=== PATIENT | male | born 1955 | race Caucasian/White ===

== ENCOUNTER 2022-06-10 15:21 | Inpatient (IN) | payer MEDICARE, BC, SELFPAY ==
[2022-06-10] VITALS (11 sets, daily range): BP systolic 113–150; BP diastolic 59–77; PULSE 77–115; RESP 20–28; TEMP 36.2–38.2; O2SAT 88–97; BMI 40.8; BMI 41.3
--- NOTE | 2022-06-10 17:07 | CRLHL7_ITS ---
For Patients: As a result of the Cures Act, medical imaging exams and procedure reports are released immediately into your electronic medical record. You may view this report before your referring provider. If you have questions, please contact your health care provider. INDICATION: Shortness of breath. TECHNIQUE: Chest 1 view. COMPARISON: None. FINDINGS: There are diffusely increased interstitial opacities bilaterally which may be infectious/inflammatory due to edema. Mild bibasilar atelectasis. No pleural effusion or pneumothorax. Calcified granulomas right upper lung and left mid lung. The cardiac silhouette appears mildly enlarged but may be exaggerated by portable technique. Old left clavicle fracture. IMPRESSION: Diffusely increased interstitial opacities may be infectious/inflammatory or due to edema. Dictated by Minerva Morris MD @ 06/10/2022 5:46:22 PM (Electronically Signed)
[2022-06-10 17:35] LABS: HCO3 VBG 23 mmol/L (21-28); PCO2 VBG 47 mmHG (40-50); PO2 VBG 35.4 mmHG (25-47); pH VBG 7.293 (7.32-7.43)
[2022-06-10 17:36] LABS: Basophils Absolute Auto 0.02 K/uL (0.00-0.30); Basophils Percent Auto 0.3 % (0.0-3.0); Eosinophils Absolute Auto 0.29 K/uL (0.00-0.50); Eosinophils Percent Auto 4.2 % (0.0-7.0); Hematocrit 28.9 % (37.0-53.0); Hemoglobin* 9.1 gm/dL (13.5-17.5); Immature Granulocytes Abs Auto 0.01 K/uL (0.00-0.30); Immature Granulocytes Pct Auto 0.1 %; Lymphocytes Percent Auto 10.2 % (20-44); Mean Corpuscular HGB Conc 32 gm/dL (32-36); Mean Corpuscular Hemoglobin 29 pg (26-34); Mean Corpuscular Volume 94 fL (80-100); Monocytes Percent Auto 8.6 % (0.0-11.0); Neutrophils Percent Auto 76.6 % (42.0-72.0); Platelet Count* 212 K/uL (140-440); RDW Coefficient of Variation % 14.2 % (11.5-15.5); Red Blood Count 3.09 m/uL (4.30-5.90); White Blood Count* 6.87 K/uL (4.50-11.00)
[2022-06-10 17:39] LABS: Slide Review Reflex No
[2022-06-10] MEDS: FUROSEMIDE 10 MG/ML inj 40 MG IVP (17:56)
[2022-06-10 17:57] LABS: Chloride* 114 mmol/L (96-114); Potassium* 5.8 mmol/L (3.6-5.1); Sodium* 139 mmol/L (135-149)
[2022-06-10 17:58] LABS: Albumin* 3.9 g/dL (3.3-5.0); INR 1.12 (0.91-1.10)
[2022-06-10 18:00] LABS: Creatinine* 1.7 mg/dL (0.5-1.5); Est. Creatinine Clearance* 37.53; Estimated Glomerular Filt Rate 43 ml/min
[2022-06-10 18:01] LABS: Alkaline Phosphatase* 63 U/L (40-150); Aspartate Amino Transferase* 31 U/L (12-35); Bilirubin Direct* 0.2 mg/dL (0.0-0.5); Bilirubin Total* 0.4 mg/dL (0.1-1.5); Blood Urea Nitrogen* 31 mg/dL (7-30); Calcium* 8.9 mg/dL (8.4-10.6); Carbon Dioxide* 21 mmol/L (20-32); Glucose* 78 mg/dL (60-115); Total Protein* 6.7 g/dL (6.0-8.3)
[2022-06-10 18:02] LABS: Alanine Aminotransferase* 60 U/L (4-50)
[2022-06-10 18:04] LABS: C Reactive Protein* < 0.5 mg/dL (0.5-1.0)
[2022-06-10 18:13] LABS: Troponin I* < 0.01 ng/mL (0.01-0.04)
[2022-06-10 18:14] LABS: NT Pro B Type NatriureticPept* 3020 pg/mL
--- NOTE | 2022-06-10 19:48 | ED.NURSE ---
blood sugar 68. informed. pt given applesauce to eat.
--- NOTE | 2022-06-10 20:34 | ED.NURSE ---
pt offered more food, pt did not want more food.
[2022-06-10 20:50] LABS: SARS PCR* POSITIVE SARS-CoV-2 (Negative)
--- NOTE | 2022-06-10 20:51 | ED_ITS ---
HPI - General Adult General Date Seen: 06/10/22 Chief complaint: Shortness of Breath/Dyspnea Stated complaint: Cardiac Arrest concern,Diabetic Health Issues Time Seen by Provider: 06/10/22 16:36 Source: patient and family History of Present Illness HPI narrative: Patient is a 66-year-old male, with really no previous records here, presents with his son, at the recommendation of his home health nurse. He is a poor historian. He was admitted to [place] several weeks ago with it sounds like congestive heart failure needing diuresis. He says they ?did not do anything for him. Since leaving the hospital, he says he has been ?the same, but does note that his weight is up from a baseline of 225 to 255. He is under the impression this can be fixed by putting in a catheter appear he says his abdomen is distended, he seems to feel that this is related to his bladder. His legs are very swollen, he does acknowledge that. He says his breathing is terrible, he can barely put on his socks because he is so short of breath. He does deny chest pain. He says he always has a cough but that is unchanged. He is not having any trouble with fevers. He does not have any new pain in his legs. He has had diarrhea for a while now, he tells me that he was treated for an infection that they told him he got from chickens, 4 years ago. He said he took some red pill to treat that, but it seems to have come back so they gave him a d ifferent medicine. He can not remember what the name of either the infection or the medications were, but C diff and salmonella did not sound familiar to him. He denies bloody or black stools. Related Data Home Medications Medication Instructions Recorded Confirmed aspirin 81 mg chewable tablet 81 mg PO DAILY 06/10/22 06/10/22 (Aspirin Childrens) atorvastatin 80 mg tablet 80 mg PO HS 06/10/22 06/10/22 carvedilol 3.125 mg tablet 3.125 mg PO Q12H 06/10/22 06/10/22 cholecalciferol (vitamin D3) 125 5,000 unit PO DAILY 06/10/22 06/10/22 mcg (5,000 unit) capsule gabapentin 300 mg capsule 300 mg PO HS 06/10/22 06/10/22 glipizide 5 mg-metformin 500 mg 1 tab PO BID 06/10/22 06/10/22 tablet lisinopril 5 mg tablet 5 mg PO DAILY 06/10/22 06/10/22 tamsulosin 0.4 mg capsule 0.4 mg PO Q24H 06/10/22 06/10/22 torsemide 100 mg tablet mg 06/10/22 Allergies Allergy/AdvReac Type Severity Reaction Status Date / Time No Known Drug Allergies Allergy Verified 06/10/22 15:58 Review of Systems Status of ROS: Reports: 10 or more systems reviewed and unremarkable except as noted in History and below [facility] Social History Smoking Status: Unknown if ever smoked Non-prescribed substance use: denies use Exam Narrative: Exam Narrative: Vital signs as noted above. In general, an alert, nontoxic male. Speaks in full sentences. Head: Normocephalic, atraumatic. Eyes: Pupils are equal reactive. Extraocular movements are full. Conjunctivae are normal. ENT: Mucous membranes are moist. Throat is normal. Neck: Supple without lymphadenopathy. Heart: Regular rate and rhythm. No murmur or rub. Lungs: Bibasilar crackles. Tachypneic, no increased work of breathing. Abdomen: Protuberant, distended, abdominal wall somewhat tense but he is nontender to palpation. Extremities: Pitting edema to the knees bilaterally. No erythema, no calf tenderness. Pulses not assessed in the feet. Neurologic: Patient is alert and oriented to person and place. Speech is fluent. Face is symmetric. Moves all extremities equally. Affect: Normal. Skin: Warm and dry. Well perfused. Const: Vital Signs, click to edit/add: Vital Signs - 24 hr 06/10/22 15:41 06/10/22 21:00 06/10/22 21:22 Temperature 97.1 F L Pulse Rate [Right Pulse Oximeter] 77 83 Respiratory Rate 28 H 20 Blood Pressure [Ri ght Upper Arm] 113/66 121/59 L Pulse Oximetry 93 88 97 Oxygen Delivery Me thod Room Air Room Air Nasal Cannula Oxygen Flow Rate 2 Documenting provider has reviewed patient's vital signs: yes Course Course Hospital Course: Following initial evaluation an IV was placed, he was given 40 mg of IV Lasix pending labs. An x-ray of the chest by my review showed findings consistent with pulmonary edema. The final radiology report was read as diffusely increased interstitial opacities which may be inflammatory, infectious or due to edema. I think given the clinical picture edema is most likely. We did do a bladder scan, he had 250 mL of urine in his bladder, but he also is able to urinate without any difficulty seemingly, so I do not think he has urinary retention as a problem. I think he seems to associates getting a catheter with his hospitalizations for diuresis. I have tried to explain to him that placing a catheter will not fix his underlying fluid overload. His labs otherwise show white count of 6.8 and normal platelets. His hemoglobin is 9.1, baseline unknown. His INR is a tiny bit elevated at 1.1 to, venous gas shows minimal acidosis at 7.29, but pCO2 is normal and bicarb is likewise normal at 23. Sodium is 139 potassium is elevated at 5.8. Lisinopril may need to be held given his renal insufficiency and hyperkalemia. He did have an EKG which by my review shows a normal sinus rhythm, ventricular rate of 70, nonspecific ST changes but I do not see anything suggestive of hyperkalemia. I do not think that needs specific treatment right now, should be rechecked. His BUN and creatinine are elevated at 31 and 1.7, again baseline unknown. Blood sugar on his metabolic panel was normal at 78, albeit slightly low, he did drop a little further into the 60s and was given something to eat. He does have a history of diabetes. For now, I have recommended that he stay in the hospital for diuresis and management of his fluid and electrolyte status. He is amenable to that. Troponin was negative. COVID however was positive. Vital Signs Vital signs: Initial Vital Signs Temperature 97.1 F L 06/10/22 15:41 Temperature Source Temporal Artery Scan 06/10/22 15:41 Pulse Rate 77 06/10/22 15:41 Respiratory Rate 28 H 06/10/22 15:41 Blood Pressure 113/66 06/10/22 15:41 Blood Pressure Mean 81 06/10/22 15:41 Blood Pressure Position Sitting 06/10/22 15:41 Pulse Oximetry 93 06/10/22 15:41 Oxygen Delivery Method 06/10/22 15:41 Vital Signs Temperature 97.1 F L 06/10/22 15:41 Pulse Rate 77 06/10/22 15:41 Respiratory Rate 28 H 06/10/22 15:41 Blood Pressure 113/66 06/10/22 15:41 Pulse Oximetry 93 06/10/22 15:41 Oxygen Delivery Method 06/10/22 15:41 Temperature 97.1 F L 06/10/22 15:41 Pulse Rate 83 06/10/22 21:00 Respiratory Rate 20 06/10/22 21:00 Blood Pressure 121/59 L 06/10/22 21:00 Pulse Oximetry 97 06/10/22 21:22 Oxygen Delivery Method 06/10/22 21:22 Oxygen Flow Rate 2 06/10/22 21:22 Medical Decision Making Lab Data Labs: Lab Results 06/10/22 06/10/22 06/10/22 Range/Units 17:30 17:30 17:30 WBC 6.87 (4.50-11.00) K/uL RBC 3.09 L (4.30-5.90) m/uL Hgb 9.1 L (13.5-17.5) gm/dL Hct 28.9 L (37.0-53.0) % MCV 94 (80-100) fL MCH 29 (26-34) pg MCHC 32 (32-36) gm/dL RDW Coeff of Won 14.2 (11.5-15.5) % Plt Count 212 (140-440) K/uL Neut % (Auto) 76.6 H (42.0-72.0) % Lymph % (Auto) 10.2 L (20-44) % Carver % (Auto) 8.6 (0.0-11.0) % Eos % (Auto) 4.2 (0.0-7.0) % Baso % (Auto) 0.3 (0.0-3.0) % Neut # (Auto) 5.30 (1.7-7.0) K/uL Lymph # (Auto) 0.70 L (0.90-2.90) K/uL Carver # (Auto) 0.60 (0.00-0.90) K/UL Eos # (Auto) 0.29 (0.00-0.50) K/uL Baso # (Auto) 0.02 (0.00-0.30) K/uL INR 1.12 H (0.91-1.10) VBG pH (7.32-7.43) VBG pCO2 (40-50) mmHG VBG pO2 (25-47) mmHG VBG HCO3 (21-28) mmol/L Sodium 139 (135-149) mmol/L Potassium 5.8 H (3.6-5.1) mmol/L Chloride 114 (96-114) mmol/L Carbon Dioxide 21 (20-32) mmol/L BUN 31 H (7-30) mg/dL Creatinine 1.7 H (0.5-1.5) mg/dL Estimated Creat Clear 37.53 Estimated GFR 43 ml/min Glucose 78 (60-115) mg/dL Calcium 8.9 (8.4-10.6) mg/dL Total Bilirubin (0.1-1.5) mg/dL Direct Bilirubin (0.0-0.5) mg/dL AST (12-35) U/L ALT (4-50) U/L Alkaline Phosphatase (40-150) U/L Troponin I (0.01-0.04) ng/mL C-Reactive Protein < 0.5 L (0.5-1.0) mg/dL NT-Pro-B Natriuret Pep pg/mL Total Protein (6.0-8.3) g/dL Albumin (3.3-5.0) g/dL TSH (0.270-4.200) uIU/mL SARS-CoV-2 (PCR) (Negative) 06/10/22 06/10/22 06/10/22 Range/Units 17:30 17:30 17:30 WBC (4.50-11.00) K/uL RBC (4.30-5.90) m/uL Hgb (13.5-17.5) gm/dL Hct (37.0-53.0) % MCV (80-100) fL MCH (26-34) pg MCHC (32-36) gm/dL RDW Coeff of Won (11.5-15.5) % Plt Count (140-440) K/uL Neut % (Auto) (42.0-72.0) % Lymph % (Auto) (20-44) % Carver % (Auto) (0.0-11.0) % Eos % (Auto) (0.0-7.0) % Baso % (Auto) (0.0-3.0) % Neut # (Auto) (1.7-7.0) K/uL Lymph # (Auto) (0.90-2.90) K/uL Carver # (Auto) (0.00-0.90) K/UL Eos # (Auto) (0.00-0.50) K/uL Baso # (Auto) (0.00-0.30) K/uL INR (0.91-1.10) VBG pH 7.293 L (7.32-7.43) VBG pCO2 47 (40-50) mmHG VBG pO2 35.4 (25-47) mmHG VBG HCO3 23 (21-28) mmol/L Sodium (135-149) mmol/L Potassium (3.6-5.1) mmol/L Chloride (96-114) mmol/L Carbon Dioxide (20-32) mmol/L BUN (7-30) mg/dL Creatinine (0.5-1.5) mg/dL Estimated Creat Clear Estimated GFR ml/min Glucose (60-115) mg/dL Calcium (8.4-10.6) mg/dL Total Bilirubin 0.4 (0.1-1.5) mg/dL Direct Bilirubin 0.2 (0.0-0.5) mg/dL AST 31 (12-35) U/L ALT 60 H (4-50) U/L Alkaline Phosphatase 63 (40-150) U/L Troponin I < 0.01 L (0.01-0.04) ng/mL C-Reactive Protein (0.5-1.0) mg/dL NT-Pro-B Natriuret Pep 3020 pg/mL Total Protein 6.7 (6.0-8.3) g/dL Albumin 3.9 (3.3-5.0) g/dL TSH 1.060 (0.270-4.200) uIU/mL SARS-CoV-2 (PCR) (Negative) 06/10/22 Range/Units 20:05 WBC (4.50-11.00) K/uL RBC (4.30-5.90) m/uL Hgb (13.5-17.5) gm/dL Hct (37.0-53.0) % MCV (80-100) fL MCH (26-34) pg MCHC (32-36) gm/dL RDW Coeff of Won (11.5-15.5) % Plt Count (140-440) K/uL Neut % (Auto) (42.0-72.0) % Lymph % (Auto) (20-44) % Carver % (Auto) (0.0-11.0) % Eos % (Auto) (0.0-7.0) % Baso % (Auto) (0.0-3.0) % Neut # (Auto) (1.7-7.0) K/uL Lymph # (Auto) (0.90-2.90) K/uL Carver # (Auto) (0.00-0.90) K/UL Eos # (Auto) (0.00-0.50) K/uL Baso # (Auto) (0.00-0.30) K/uL INR (0.91-1.10) VBG pH (7.32-7.43) VBG pCO2 (40-50) mmHG VBG pO2 (25-47) mmHG VBG HCO3 (21-28) mmol/L Sodium (135-149) mmol/L Potassium (3.6-5.1) mmol/L Chloride (96-114) mmol/L Carbon Dioxide (20-32) mmol/L BUN (7-30) mg/dL Creatinine (0.5-1.5) mg/dL Estimated Creat Clear Estimated GFR ml/min Glucose (60-115) mg/dL Calcium (8.4-10.6) mg/dL Total Bilirubin (0.1-1.5) mg/dL Direct Bilirubin (0.0-0.5) mg/dL AST (12-35) U/L ALT (4-50) U/L Alkaline Phosphatase (40-150) U/L Troponin I (0.01-0.04) ng/mL C-Reactive Protein (0.5-1.0) mg/dL NT-Pro-B Natriuret Pep pg/mL Total Protein (6.0-8.3) g/dL Albumin (3.3-5.0) g/dL TSH (0.270-4.200) uIU/mL SARS-CoV-2 (PCR) POSITIVE SARS-CoV-2 A (Negative) Discharge Plan Discharge Clinical Impression: COVID-19, Congestive heart failure Patient Disposition: Admitted As Inpatient Condition: Improved
--- NOTE | 2022-06-10 21:23 | ED.NURSE ---
pt with low O2 sats while sleeping. Pt reports using O2 at home. Pt placed on O2 via NC, sats increased from 80's to 90's after O2 applied.
--- NOTE | 2022-06-10 22:23 | PM.IMHP1 ---
Hospitalist- H&P: HPI History of Present Illness Date Seen: 06/10/22 Chief complaint: Possible Cardiac Arrest,Diabetic Health Issues Narrative: Gasper Cheng is a 66 year old male who presented to the hospital at the behest of his home health nurse for dyspnea and acute on chronic lower extremity edema. Patient notes that he has had shortness of breath for at least a week, possibly longer, accompanied by intermittent coughing. Cough has not been productive. He has had difficulty performing ADLs secondary to dyspnea. He has also noted orthopnea and is not sleeping well. He has not had any fevers or chest pain. ER course and findings: - BNP 1999 - negative troponin - positive COVID Patient was hospitalized for COVID in April of 2021 [place]. He tolerated Remdesivir well at that time, is amenable to treatment with this again. Gasper has a complicated past medical history. His PCP is Dr. Strange at [facility] in [place]. He has known coronary artery disease with a history of stenting. Also has known combined systolic and diastolic congestive heart failure with previous EF davi of 26%. Had a recent TTE with findings below, follows with cardiology at [facility]. Other past medical and surgical history updated below. Patient lives with a son and [id number] near [place]. He receives home health care through [facility]. He is a retired lama and lift truck mechanic. He has 5 adult children, they would share medical decision making duties if needed. He requests full code status. Last TTE 05/14/22 Final Impressions: 1. Technically limited exam. 2. Moderately increased LV size, normal wall thickness, mildly reduced global systolic function with an estimated EF of 40 - 45%. 3. Right ventricular cavity size is normal, global systolic RV function is normal. 4. Mildly enlarged left atrium. 5. The aortic valve is sclerotic and trileaflet, no stenosis and no regurgitation. 6. The mitral valve is sclerotic, mild mitral regurgitation. Review of Systems Status of ROS: Reports: 10 or more systems reviewed and unremarkable except as noted in History and below Narrative: + weight gain PFSH [facility] Medical History (Updated 06/11/22 @ 00:17 by Maite Mcdonald MD) Anemia Congestive heart failure Essential hypertension Hyperlipidemia IDDM (insulin dependent diabetes mellitus) NSTEMI (non-ST elevated myocardial infarction) LILLIANA (obstructive sleep apnea) Stage 3a chronic kidney disease Surgical History (Updated 06/10/22 @ 23:32 by Maite Mcdonald MD) S/P coronary artery stent placement Social History (Updated 06/11/22 @ 00:14 by Maite Mcdonald MD) Narrative: Five adult children. Lives with son Bonifacio and [id number] near [place]. Not currently . Worked as a lama and lift truck mechanic. Former smoker, quit around the year 1999. Social alcohol use. Requests full code status. Smoking Status: Former smoker Non-prescribed substance use: denies use Meds Home Medications and Allergies Home Medications Medication Instructions Recorded Confirmed Type aspirin 81 mg chewable tablet 81 mg PO DAILY 06/10/22 06/10/22 History (Aspirin Childrens) atorvastatin 80 mg tablet 80 mg PO HS 06/10/22 06/10/22 History carvedilol 3.125 mg tablet 3.125 mg PO Q12H 06/10/22 06/10/22 History cholecalciferol (vitamin D3) 125 5,000 unit PO DAILY 06/10/22 06/10/22 History mcg (5,000 unit) capsule gabapentin 300 mg capsule 300 mg PO HS 06/10/22 06/10/22 History glipizide 5 mg-metformin 500 mg 1 tab PO BID 06/10/22 06/10/22 History tablet lisinopril 5 mg tablet 5 mg PO DAILY 06/10/22 06/10/22 History tamsulosin 0.4 mg capsule 0.4 mg PO Q24H 06/10/22 06/10/22 History torsemide 100 mg tablet mg 06/10/22 History Home Medication Comments: Unclear if the above list is correct. Will request pharmacy consult. Patient states he is taking his metformin and torsemide (50 mg once per day). He also takes insulin when his blood sugar is above 200. Allergies Allergy/AdvReac Type Severity Reaction Status Date / Time No Known Drug Allergies Allergy Verified 06/10/22 15:58 Exam Narrative: Exam Narrative: GEN: Alert and oriented, answering questions appropriately HEENT: Normal external ears, EOMIs bilaterally, + xanthelasma R eye, scar over left eye from previous surgical intervention, no scleral icterus CV: Regular rate and rhythm, heart sounds distant given body habitus, no concerning murmurs R: No tachypnea at rest, bibasilar crackles, no wheezing Abdomen: Protuberant, nontender Ext: 3-4+ pitting edema up to knees bilaterally, erythema and thickened skin of bilateral anterior lower extremities consistent with PVD Skin: Besides lower extremity findings, no concerning skin lesions or rashes on exposed skin Neuro: No focal deficits, no resting tremor Psych: Appropriate Const: Vital Signs, click to edit/add: Vital Signs - 24 hr 06/10/22 15:41 06/10/22 21:00 06/10/22 21:22 Temperature 97.1 F L Pulse Rate [Right Pulse Oximeter] 77 83 Respiratory Rate 28 H 20 Blood Pressure [Ri ght Upper Arm] 113/66 121/59 L Pulse Oximetry 93 88 97 Oxygen Delivery Me thod Room Air Room Air Nasal Cannula Oxygen Flow Rate 2 Hospitalist - H&P: Result Labs Labs: Short CBC 06/10/22 Range/Units 17:30 WBC 6.87 (4.50-11.00) K/uL Hgb 9.1 L (13.5-17.5) gm/dL Hct 28.9 L (37.0-53.0) % Plt Count 212 (140-440) K/uL BMP 06/10/22 17:30 Sodium 139 Potassium 5.8 H Chloride 114 Carbon Dioxide 21 BUN 31 H Creatinine 1.7 H Glucose 78 Calcium 8.9 Cardiac Enzymes 06/10/22 Range/Units 17:30 Troponin I < 0.01 L (0.01-0.04) ng/mL Liver Function 06/10/22 Range/Units 17:30 Total Bilirubin 0.4 (0.1-1.5) mg/dL Direct Bilirubin 0.2 (0.0-0.5) mg/dL AST 31 (12-35) U/L ALT 60 H (4-50) U/L Alkaline Phosphatase 63 (40-150) U/L Albumin 3.9 (3.3-5.0) g/dL Assessment and Plan Assessment and plan (1) Dyspnea: Problem comment: - CHF exacerbation likely primary source given edema and orthopnea - untreated LILLIANA and mild anemia also possibly contributing Status: Acute (2) Anemia: Problem comment: - previous outpatient hemoglobin 12.6 in 03/2021 Status: Acute (3) Acute on chronic combined systolic (congestive) and diastolic (congestive) heart failure: Status: Acute (4) Stage 3a chronic kidney disease: Status: Acute (5) COVID-19: Problem comment: - patient on interested in vaccination - amenable to treatment with Remdesivir given comorbidities and tolerance of medication last year Status: Acute (6) IDDM (insulin dependent diabetes mellitus): Problem comment: - most recent A1c 9.7 (03/2021) Status: Acute Plan - IV Lasix, follow Is and Os - Remdesivir for + COVID, not requiring supplemental oxygen or other specific therapies at this time - sliding scale insulin and Accu-Cheks for DM2 - nutrition consult
[2022-06-10 22:39] LABS: Chloride* 114 mmol/L (96-114); Potassium* 5.5 mmol/L (3.6-5.1); Sodium* 139 mmol/L (135-149)
[2022-06-10 22:42] LABS: Blood Urea Nitrogen* 30 mg/dL (7-30); Carbon Dioxide* 20 mmol/L (20-32); Creatinine* 1.7 mg/dL (0.5-1.5); Est. Creatinine Clearance* 37.53; Estimated Glomerular Filt Rate 43 ml/min
[2022-06-10 22:43] LABS: Calcium* 9.2 mg/dL (8.4-10.6); Glucose* 79 mg/dL (60-115)
--- NOTE | 2022-06-10 23:09 | W.PC.EDHO ---
Primary Language: Pashto Preferred Language: Orientation Status: [x] Alert & Oriented [] Slight Confusion [] Known Dx Dementia Transfers By: [] Assist of 1 [x] Assist of 2 [] Lift Active Medications Discontinued Medications Generic Name Dose Route Start Last Admin Trade Name Herb PRN Reason Stop Dose Admin Furosemide 40 mg 06/10/22 17:45 06/10/22 17:56 Furosemide 10 Mg/Ml Inj IVP 06/10/22 17:46 40 mg ONCE ONE Administration Description of Symptoms ED Triage Present Problem patient was in hospital 3 weeks ago and was at a Description clinic appointment stated has gained 30 # (223# and today 252#) weight gain noticed in the face, abdomen, ankles, has the runs per patient, has home O2 via 2-3 liters all the time for sob. hx of heart problems 5 PA, 2 stents, heart is working at 15% years ago. ED Triage Date of Onset of 06/10/22 Symptoms Pain Pain Intensity [Medial Abdomen 5 ] Pain Scale Used [Medial Numeric (1 - 10) Abdomen] Oxygen Administration Pulse Oximetry 97 Pulse Oximetry 93 Pulse Oximetry 90 Pulse Oximetry 97 Pulse Oximetry 97 Pulse Oximetry 97 Pulse Oximetry 88 Pulse Oximetry 93 Oxygen Delivery Method Nasal Cannula Oxygen Delivery Method Nasal Cannula Oxygen Delivery Method Nasal Cannula Oxygen Delivery Method Nasal Cannula Oxygen Delivery Method Nasal Cannula Oxygen Delivery Method Nasal Cannula Oxygen Delivery Method Room Air Oxygen Delivery Method Room Air Oxygen Flow Rate 2 Oxygen Flow Rate 2 Oxygen Flow Rate 2 Oxygen Flow Rate 2 Oxygen Flow Rate 2 Oxygen Flow Rate 2 Cardiac Monitoring EKG Method 12 Lead EKG Method 12 Lead
--- NOTE | 2022-06-10 23:30 | ED.NURSE ---
Report called to M/S RN.
[2022-06-11] VITALS (15 sets, daily range): BP systolic 89–150; BP diastolic 53–77; PULSE 55–99; RESP 20–24; TEMP 37.3–38.2; O2SAT 93–97
[2022-06-11] MEDS: carvediloL 6.25 MG TABLET 3.125 MG PO ×3 (01:19→20:41)
[2022-06-11] MEDS: FUROSEMIDE 10 MG/ML inj 40 MG IVP ×2 (01:20→16:45)
[2022-06-11] MEDS: ACETAMINOPHEN 325 MG TABLET 975 MG PO ×3 (01:21→20:41)
[2022-06-11] MEDS: ENOXAPARIN 30 MG/0.3ML INJ SUBCUT ×2 (01:21→20:42)
--- NOTE | 2022-06-11 06:25 | PC.NURSE ---
End of shift status Pt newly admitted at 2340 from ER with CHF and Covid-19. Alert and oriented. Pleasant and cooperative. Requiring 2-3L of supplemental oxygen to maintain sats >90%. Does report using oxygen at home. Dyspnea with activity. Telemetry monitoring, normal sinus rhythm. IV lasix and IV remdesivir given. Harsh coughing. Voiding in urinal. Up with assist of 1. Intermittent resting between cares.
[2022-06-11] MEDS: ASPIRIN 81 MG TAB.CHEW PO (08:53)
[2022-06-11] MEDS: OMEPRAZOLE 20 MG CAPSULE DR 40 MG PO (08:53)
[2022-06-11] MEDS: lisinopriL 5 MG TABLET PO (08:55)
--- NOTE | 2022-06-11 10:18 | NUTR.NU ---
RDN with MD consult related to admit to hospital for CHF and history of Diabetes. Patient is positive for covid on admit. Due to isolation precautions, RDN is not able to visit with patient in person. RDN called patient's room x2, however no response. RDN will continue to attempt to contact patient today and at later date.
--- NOTE | 2022-06-11 14:04 | PC.NURSE ---
PATIENT PLEASANT AND COOPERATIVE, UP SBA IN ROOM, TOLERATING FAIRLY, PATIENT EXPRESSES SOB WITH ACTIVITY AND SOME AT REST, DECLINING CP/DIZZINESS, O2 2L VIA NC PATIENT STATES HE USES OXYGEN CHRONICALLY AT HOME, BG 117 & 120, POOR APPETITE ONLY HAVE TASTE FOR FRUIT, TELE SHOWING NSR WITH 1ST DEGREE BLOCK, PRN TYLENOL GIVEN FOR FEVER OF 100.8 REASSESSMENT OF 100.2, UP TO CHAIR, ENCOURAGING PATIENT TO SIT IN CHAIR/MOVE ABOUT ROOM WITH STAFFING ASSIST, IM VERY TIRED, DECLINING PAIN OTHER THAN PAIN WITH COUGHING.
--- NOTE | 2022-06-11 16:07 | P.IMPN_ITS ---
Progress Note: A&P Assessment and plan (1) Dyspnea: Problem details: - CHF exacerbation likely primary source given edema and orthopnea - untreated LILLIANA and mild anemia also possibly contributing Status: Acute (2) Anemia: Problem details: - previous outpatient hemoglobin 12.6 in 03/2021 Status: Acute Assessment and Plan: This warrants ongoing monitoring. Will warrant additional diagnostic efforts depending on findings over time. (3) Acute on chronic combined systolic (congestive) and diastolic (congestive) heart failure: Problem details: Last TTE 05/14/22 Final Impressions: 1. Technically limited exam. 2. Moderately increased LV size, normal wall thickness, mildly reduced global systolic function with an estimated EF of 40 - 45%. 3. Right ventricular cavity size is normal, global systolic RV function is normal. 4. Mildly enlarged left atrium. 5. The aortic valve is sclerotic and trileaflet, no stenosis and no regurgitation. 6. The mitral valve is sclerotic, mild mitral regurgitation. Status: Acute Assessment and Plan: Scheduled furosemide 40 mg IV daily starting today. Continue monitor weights daily. Continue to monitor labs daily. Would benefit from dietary consultation. (4) Stage 3a chronic kidney disease: Status: Acute Assessment and Plan: Continue to monitor kidney functions daily. (5) COVID-19: Problem details: - patient not interested in vaccination - amenable to treatment with Remdesivir given comorbidities and tolerance of medication last year Status: Acute Assessment and Plan: Today will be day 2/3 of remdesivir. (6) IDDM (insulin dependent diabetes mellitus): Problem details: - most recent A1c 9.7 (03/2021) Status: Acute Assessment and Plan: Monitor blood sugars and treat with sliding scale for now. Plan 1. Reviewed the above with the patient. Answered his questions. 2. Patient agreeable to above stated plans and recommendations. Time Spent With Patient Total time spent: 30 minutes Subjective Time Seen by Provider: 11:00 Date Seen: 06/11/22 Interval history: Hospital day 2. 66-year-old man with known systolic and diastolic combined heart failure presents with 1 week of increasing dyspnea and edema. He tells me that within the last few weeks he was hospitalized at the [facility] for the same thing and has not ever felt better. He thinks they discharged from the hospital to quickly. He tells me he was in the hospital for about 6 or 7 days. Presently when he was evaluated in the emergency department he was thought to indeed have heart failure. Incidentally he was also found to have COVID. He was started on treatment for both of these. Received 2 doses of furosemide 40 mg IV yesterday. Was started on remdesivir yesterday as well. At rest he states he has no dyspnea. With minimal exertion he has significant dyspnea. Denies chest heaviness, pressure, tightness, or pain. Denies syncope or near-syncope. Denies nausea or vomiting. Denies palpitations or chest fluttering. Does not follow a diet low in sodium per se. Eats to prepackaged foods as well as restaurant purchased foods without regard to sodium content. Claims he does not add salt directly to his food after its on his plate. Exam Narrative: Exam Narrative: Weight on admission was 112.6 kg. Today's weight is not specified. Appears comfortable and in no acute distress. Articulate, cooperative, friendly. Appropriately frustrated about his medical condition. Tight oral aperture with very thick neck, plus barrel-shaped chest and apple shaped body habitus, worrisome for possible obstructive sleep apnea, which she does not have an official diagnosis of. Lungs are clear. Decreased breath sounds in the base. No CVA tenderness. Heart tones with regular rhythm, normal S1-S2. Abdomen is obese with active bowel sounds, soft, nontender. He has pedal edema, pretibial edema, edema in his thighs, presacral edema. Does not have scrotal edema. Skin is warm, dry, intact. Independent transfer, station, and gait. Obvious dyspnea with minimal exertion. No focal motor neurologic deficits. No tremor, asterixis, or ataxia. Const: Vital Signs, click to edit/add: Vital Signs - 24 hr 06/10/22 21:00 06/10/22 21:22 06/10/22 21:00 Temperature Pulse Rate Pulse Rate [Pulse Oximeter] Pulse Rate [Right Pulse Oximeter] 83 Respiratory Rate 20 Blood Pressure [Le ft Arm] Blood Pressure [Ri ght Upper Arm] 121/59 L Pulse Oximetry 88 97 97 Oxygen Delivery Me thod Room Air Nasal Cannula Nasal Cannula Oxygen Flow Rate 2 2 06/10/22 21:29 06/10/22 21:30 06/10/22 22:11 Temperature Pulse Rate 97 95 115 H Pulse Rate [Pulse Oximeter] Pulse Rate [Right Pulse Oximeter] Respiratory Rate Blood Pressure [Le ft Arm] Blood Pressure [Ri ght Upper Arm] Pulse Oximetry 97 97 90 Oxygen Delivery Me thod Nasal Cannula Nasal Cannula Nasal Cannula Oxygen Flow Rate 2 2 2 06/10/22 22:15 06/10/22 22:30 06/10/22 22:45 Temperature Pulse Rate 99 97 98 Pulse Rate [Pulse Oximeter] Pulse Rate [Right Pulse Oximeter] Respiratory Rate Blood Pressure [Le ft Arm] Blood Pressure [Ri ght Upper Arm] Pulse Oximetry 93 97 96 Oxygen Delivery Me thod Nasal Cannula Nasal Cannula Nasal Cannula Oxygen Flow Rate 2 2 2 06/10/22 23:00 06/10/22 23:49 06/11/22 00:04 Temperature 100.8 F H 100.8 F H Pulse Rate 98 Pulse Rate [Pulse Oximeter] 99 99 Pulse Rate [Right Pulse Oximeter] Respiratory Rate 24 24 Blood Pressure [Le ft Arm] 150/77 H 150/77 H Blood Pressure [Ri ght Upper Arm] Pulse Oximetry 95 94 94 Oxygen Delivery Me thod Nasal Cannula Nasal Cannula Nasal Cannula Oxygen Flow Rate 2 2 2 06/10/22 23:49 06/11/22 01:21 06/11/22 00:44 Temperature 100.8 F H Pulse Rate 94 Pulse Rate [Pulse Oximeter] Pulse Rate [Right Pulse Oximeter] Respiratory Rate Blood Pressure [Le ft Arm] Blood Pressure [Ri ght Upper Arm] Pulse Oximetry Oxygen Delivery Me thod Nasal Cannula Oxygen Flow Rate 2 06/11/22 04:11 06/11/22 04:00 06/11/22 08:54 Temperature 99.2 F 99.2 F 100.8 F H Pulse Rate Pulse Rate [Pulse Oximeter] 68 Pulse Rate [Right Pulse Oximeter] Respiratory Rate 20 Blood Pressure [Le ft Arm] 104/53 L Blood Pressure [Ri ght Upper Arm] Pulse Oximetry 97 Oxygen Delivery Me thod Nasal Cannula Oxygen Flow Rate 2 06/11/22 07:00 06/11/22 07:00 06/11/22 07:00 Temperature Pulse Rate 90 Pulse Rate [Pulse Oximeter] 68 Pulse Rate [Right Pulse Oximeter] Respiratory Rate 20 20 Blood Pressure [Le ft Arm] Blood Pressure [Ri ght Upper Arm] Pulse Oximetry 93 Oxygen Delivery Me thod Nasal Cannula Oxygen Flow Rate 2 06/11/22 07:00 06/11/22 11:00 06/11/22 15:53 Temperature 100.8 F H 100.2 F H 99.4 F Pulse Rate Pulse Rate [Pulse Oximeter] 89 57 L 81 Pulse Rate [Right Pulse Oximeter] Respiratory Rate 20 20 20 Blood Pressure [Le ft Arm] 125/67 105/60 115/76 Blood Pressure [Ri ght Upper Arm] Pulse Oximetry 93 96 96 Oxygen Delivery Me thod Nasal Cannula Nasal Cannula Nasal Cannula Oxygen Flow Rate 2 2 2 Documenting provider has reviewed patient's vital signs: yes Labs Labs: Laboratory Results - last 24 hr 06/10/22 06/10/22 06/10/22 17:30 17:30 17:30 WBC 6.87 RBC 3.09 L Hgb 9.1 L Hct 28.9 L MCV 94 MCH 29 MCHC 32 RDW Coeff of Won 14.2 Plt Count 212 Neut % (Auto) 76.6 H Lymph % (Auto) 10.2 L [place] % (Auto) 8.6 Eos % (Auto) 4.2 Baso % (Auto) 0.3 Neut # (Auto) 5.30 Lymph # (Auto) 0.70 L [place] # (Auto) 0.60 Eos # (Auto) 0.29 Baso # (Auto) 0.02 INR 1.12 H VBG pH VBG pCO2 VBG pO2 VBG HCO3 Sodium 139 Potassium 5.8 H Chloride 114 Carbon Dioxide 21 BUN 31 H Creatinine 1.7 H Estimated Creat Clear 37.53 Estimated GFR 43 Glucose 78 Calcium 8.9 Total Bilirubin Direct Bilirubin AST ALT Alkaline Phosphatase Troponin I C-Reactive Protein < 0.5 L NT-Pro-B Natriuret Pep Total Protein Albumin TSH SARS-CoV-2 (PCR) 06/10/22 06/10/22 06/10/22 17:30 17:30 17:30 WBC RBC Hgb Hct MCV MCH MCHC RDW Coeff of Won Plt Count Neut % (Auto) Lymph % (Auto) [place] % (Auto) Eos % (Auto) Baso % (Auto) Neut # (Auto) Lymph # (Auto) [place] # (Auto) Eos # (Auto) Baso # (Auto) INR VBG pH 7.293 L VBG pCO2 47 VBG pO2 35.4 VBG HCO3 23 Sodium Potassium Chloride Carbon Dioxide BUN Creatinine Estimated Creat Clear Estimated GFR Glucose Calcium Total Bilirubin 0.4 Direct Bilirubin 0.2 AST 31 ALT 60 H Alkaline Phosphatase 63 Troponin I < 0.01 L C-Reactive Protein NT-Pro-B Natriuret Pep 3020 Total Protein 6.7 Albumin 3.9 TSH 1.060 SARS-CoV-2 (PCR) 06/10/22 06/10/22 20:05 22:20 WBC RBC Hgb Hct MCV MCH MCHC RDW Coeff of Won Plt Count Neut % (Auto) Lymph % (Auto) [place] % (Auto) Eos % (Auto) Baso % (Auto) Neut # (Auto) Lymph # (Auto) [place] # (Auto) Eos # (Auto) Baso # (Auto) INR VBG pH VBG pCO2 VBG pO2 VBG HCO3 Sodium 139 Potassium 5.5 H Chloride 114 Carbon Dioxide 20 BUN 30 Creatinine 1.7 H Estimated Creat Clear 37.53 Estimated GFR 43 Glucose 79 Calcium 9.2 Total Bilirubin Direct Bilirubin AST ALT Alkaline Phosphatase Troponin I C-Reactive Protein NT-Pro-B Natriuret Pep Total Protein Albumin TSH SARS-CoV-2 (PCR) POSITIVE SARS-CoV-2 A
[2022-06-11] MEDS: GABAPENTIN 300 MG CAPSULE PO (20:41)
[2022-06-11] MEDS: ATORVASTATIN CALCIUM 40 MG TABLET 80 MG PO (20:41)
[2022-06-11] MEDS: TAMSULOSIN HCL 0.4 MG CAPSULE PO (23:11)
[2022-06-12] VITALS (7 sets, daily range): BP systolic 102–150; BP diastolic 57–78; PULSE 63–80; RESP 16–22; TEMP 37.3–37.6; O2SAT 92–98
--- NOTE | 2022-06-12 05:12 | PC.NURSE ---
[id number] Pt slept in recliner part of shift then back to bed, denies pain, maintaining sats above 90% with 2LPM NC. using urinal independently in room. SBA with transfers, tolerates fairly well. denies SOB, chest pain or headache.
[2022-06-12] MEDS: OMEPRAZOLE 20 MG CAPSULE DR 40 MG PO (06:30)
[2022-06-12] MEDS: FUROSEMIDE 10 MG/ML inj 40 MG IVP ×2 (07:59→15:50)
[2022-06-12] MEDS: SODIUM CHLORIDE 0.9 % (FLUSH) 10 ML SYRINGE 5 ML IVF ×3 (08:01→23:41)
[2022-06-12 08:02] LABS: Basophils Absolute Auto 0.02 K/uL (0.00-0.30); Basophils Percent Auto 0.4 % (0.0-3.0); Eosinophils Absolute Auto 0.01 K/uL (0.00-0.50); Eosinophils Percent Auto 0.2 % (0.0-7.0); Hematocrit 25.2 % (37.0-53.0); Hemoglobin* 8.2 gm/dL (13.5-17.5); Immature Granulocytes Abs Auto 0.01 K/uL (0.00-0.30); Immature Granulocytes Pct Auto 0.2 %; Lymphocytes Percent Auto 10.1 % (20-44); Mean Corpuscular HGB Conc 33 gm/dL (32-36); Mean Corpuscular Hemoglobin 30 pg (26-34); Mean Corpuscular Volume 92 fL (80-100); Monocytes Percent Auto 11.3 % (0.0-11.0); Neutrophils Percent Auto 77.8 % (42.0-72.0); Platelet Count* 159 K/uL (140-440); RDW Coefficient of Variation % 14.1 % (11.5-15.5); Red Blood Count 2.75 m/uL (4.30-5.90); White Blood Count* 5.47 K/uL (4.50-11.00)
[2022-06-12 08:05] LABS: Slide Review Reflex No
[2022-06-12 08:08] LABS: Immature Reticulocyte Fraction 17.6 % (2.3-13.4); Reticulocyte Hemoglobin Equivi 25.7 pg (29.0-35.0); Reticulocyte Percent 1.9 % (0.5-2.0); Reticulocytes Absolute 0.05 # (0.03-0.08)
[2022-06-12 08:21] LABS: Chloride* 107 mmol/L (96-114); Sodium* 135 mmol/L (135-149)
[2022-06-12 08:24] LABS: Carbon Dioxide* 21 mmol/L (20-32); Creatinine* 2.1 mg/dL (0.5-1.5); Est. Creatinine Clearance* 29.29; Estimated Glomerular Filt Rate 34 ml/min; Iron* 19 ug/dL (49-181)
[2022-06-12 08:25] LABS: Blood Urea Nitrogen* 37 mg/dL (7-30); Calcium* 8.3 mg/dL (8.4-10.6); Glucose* 153 mg/dL (60-115)
[2022-06-12 08:33] LABS: Percent Iron Saturation 7 % (20-50); Total Iron Binding Capacity 285 ug/dL (261-462)
[2022-06-12] MEDS: ASPIRIN 81 MG TAB.CHEW PO (08:35)
[2022-06-12] MEDS: carvediloL 6.25 MG TABLET 3.125 MG PO ×2 (08:36→20:43)
[2022-06-12 09:01] LABS: NT Pro B Type NatriureticPept* 5750 pg/mL
--- NOTE | 2022-06-12 13:39 | P.IMPN_ITS ---
Progress Note: A&P Assessment and plan (1) Dyspnea: Problem details: - CHF exacerbation likely primary source given edema and orthopnea - untreated LILLIANA and mild anemia also possibly contributing Clinically improved but still needing supplemental oxygen. Status: Acute (2) Stage 3a chronic kidney disease: Problem details: Continue to monitor with vigorous diuresis. Status: Acute (3) Acute on chronic combined systolic (congestive) and diastolic (congestive) heart failure: Problem details: Last TTE 05/14/22 Final Impressions: 1. Technically limited exam. 2. Moderately increased LV size, normal wall thickness, mildly reduced global systolic function with an estimated EF of 40 - 45%. 3. Right ventricular cavity size is normal, global systolic RV function is normal. 4. Mildly enlarged left atrium. 5. The aortic valve is sclerotic and trileaflet, no stenosis and no regurgitation. 6. The mitral valve is sclerotic, mild mitral regurgitation. Status: Acute (4) Anemia: Problem details: - previous outpatient hemoglobin 12.6 in 03/2021. No obvious source of bleeding. Continue to trend. Check for GI bleeding with stool guaiac Status: Acute (5) COVID-19: Problem details: - patient not interested in vaccination - amenable to treatment with Remdesivir given comorbidities and tolerance of m edication last year Status: Acute (6) IDDM (insulin dependent diabetes mellitus): Problem details: - most recent A1c 9.7 (03/2021) blood sugar control here has been fair. Status: Acute Plan Continue in hospital for management of hypoxic respiratory failure due to heart failure and monitoring of diabetes and renal function. Time Spent With Patient Total time spent: Total time spent today is 50 minutes, 30 minutes in coordination of care and discussing with patient and other providers ongoing evaluation management of heart failure in dyspnea and kidney disease Subjective Date Seen: 06/12/22 Interval history: 66-year-old male seen in followup of hospitalization for heart failure, chronic kidney disease, anemia, COVID. Patient reports feeling a little better today. Still dyspneic with any activity. Reports this has been a problem for at least a month but gradually getting worse. He is known to have heart failure with reduced ejection fraction though apparently recent recovery in his ejection fraction from 12 years ago when his ejection fraction was 20% or 3 years ago when it was 26%. He has sleep apnea but is intolerant of CPAP. He has no new concerns today. I do see as a progressive anemia. He is not aware of any GI bleeding. Exam Narrative: Exam Narrative: He is alert and appears in no obvious distress. Speech is normal. Respirations are clear except for few basilar crackles. No marked wheezing. He has somewhat diminished breath sounds in all lung fong. Cardiovascular: S1, S2, regular rate and rhythm. Abdomen: Bowel sounds are active. Abdomen is soft without tenderness. Extremities with 2+ edema bilaterally. Const: Vital Signs, click to edit/add: Vital Signs - 24 hr 06/11/22 15:53 06/11/22 18:00 06/11/22 19:00 Temperature 99.4 F Pulse Rate 87 Pulse Rate [Pulse Oximeter] 81 Respiratory Rate 20 Blood Pressure [Le ft Arm] 115/76 Blood Pressure [Ri ght Arm] Pulse Oximetry 96 96 Oxygen Delivery Me thod Nasal Cannula Nasal Cannula Oxygen Flow Rate 2 2 06/11/22 19:00 06/11/22 20:41 06/11/22 23:19 Temperature 100.6 F H 100.6 F H 100.8 F H Pulse Rate Pulse Rate [Pulse Oximeter] 86 Respiratory Rate 22 Blood Pressure [Le ft Arm] 123/59 L Blood Pressure [Ri ght Arm] Pulse Oximetry 95 Oxygen Delivery Me thod Nasal Cannula Oxygen Flow Rate 2 06/11/22 23:00 06/11/22 23:00 06/11/22 23:00 Temperature 100.8 F H Pulse Rate Pulse Rate [Pulse Oximeter] 86 57 L Respiratory Rate 20 20 20 Blood Pressure [Le ft Arm] 89/57 L Blood Pressure [Ri ght Arm] Pulse Oximetry 95 95 Oxygen Delivery Me thod Nasal Cannula Nasal Cannula Oxygen Flow Rate 2 2 06/11/22 23:41 06/12/22 03:00 06/12/22 07:00 Temperature 99.2 F 99.6 F Pulse Rate 55 L Pulse Rate [Pulse Oximeter] 77 80 Respiratory Rate 20 22 Blood Pressure [Le ft Arm] 119/57 L Blood Pressure [Ri ght Arm] 139/78 Pulse Oximetry 96 92 Oxygen Delivery Me thod Nasal Cannula Nasal Cannula Oxygen Flow Rate 2 2 06/12/22 07:00 06/12/22 07:00 06/12/22 07:00 Temperature Pulse Rate 73 Pulse Rate [Pulse Oximeter] 80 Respiratory Rate 22 22 Blood Pressure [Le ft Arm] Blood Pressure [Ri ght Arm] Pulse Oximetry 92 Oxygen Delivery Me thod Nasal Cannula Oxygen Flow Rate 2 06/12/22 11:00 Temperature 99.5 F Pulse Rate Pulse Rate [Pulse Oximeter] 65 Respiratory Rate 16 Blood Pressure [Le ft Arm] 124/65 Blood Pressure [Ri ght Arm] Pulse Oximetry 98 Oxygen Delivery Me thod Nasal Cannula Oxygen Flow Rate 2 Labs Labs: Laboratory Results - last 24 hr 06/12/22 06/12/22 06/12/22 07:41 07:41 07:41 WBC RBC Hgb Hct MCV MCH MCHC RDW Coeff of Won Plt Count Neut % (Auto) Lymph % (Auto) [place] % (Auto) Eos % (Auto) Baso % (Auto) Neut # (Auto) Lymph # (Auto) [place] # (Auto) Eos # (Auto) Baso # (Auto) Absolute Retic 0.05 Percent Retic 1.9 Immature Retic Fraction 17.6 H Retic Hgb Equivalent 25.7 L Sodium 135 Potassium 5.0 Chloride 107 Carbon Dioxide 21 BUN 37 H Creatinine 2.1 H Estimated Creat Clear 29.29 Estimated GFR 34 Glucose 153 H Calcium 8.3 L Iron 19 L TIBC 285 % Saturation 7 L NT-Pro-B Natriuret Pep 5750 06/12/22 07:41 WBC 5.47 RBC 2.75 L Hgb 8.2 L Hct 25.2 L MCV 92 MCH 30 MCHC 33 RDW Coeff of Won 14.1 Plt Count 159 Neut % (Auto) 77.8 H Lymph % (Auto) 10.1 L [place] % (Auto) 11.3 H Eos % (Auto) 0.2 Baso % (Auto) 0.4 Neut # (Auto) 4.30 Lymph # (Auto) 0.60 L [place] # (Auto) 0.60 Eos # (Auto) 0.01 Baso # (Auto) 0.02 Absolute Retic Percent Retic Immature Retic Fraction Retic Hgb Equivalent Sodium Potassium Chloride Carbon Dioxide BUN Creatinine Estimated Creat Clear Estimated GFR Glucose Calcium Iron TIBC % Saturation NT-Pro-B Natriuret Pep
--- NOTE | 2022-06-12 14:42 | PC.NURSE ---
End of Shift: Patient pleasant and cooperative. Patient vitally stable, lungs course/rhonci, BS WNL, IV intact. Patient denies pain. Patient is SBA, but has been using the urinal. Blood sugars 156 and 244. Patient with productive cough, with clear/yellow sputum. Bladder scan performed about 130ccs found. Patient on 2 L NS with sats in high 90's. Patient tolerating regular diet.
[2022-06-12] MEDS: ATORVASTATIN CALCIUM 40 MG TABLET 80 MG PO (20:43)
[2022-06-12] MEDS: SENNOSIDES/DOCUSATE TABLET 1 TAB PO (20:43)
[2022-06-12] MEDS: GABAPENTIN 300 MG CAPSULE PO (20:43)
[2022-06-12] MEDS: TAMSULOSIN HCL 0.4 MG CAPSULE PO (20:43)
[2022-06-12] MEDS: guaiFENesin 100 MG/ML CUP PO (20:43)
--- NOTE | 2022-06-12 22:48 | PC.NURSE ---
Shift [id number]- Patient denies pain throughout shift, with exception to headache and sternal pain related to coughing. He has a moist, productive cough. He appears sleepy throughout most of shift and states he has not been able to sleep well recently. Remains on 2L O2 with saturations in mid 90s%.
[2022-06-12] MEDS: 0.9 % SODIUM CHLORIDE 250 ml IV (23:40)
[2022-06-13] VITALS (11 sets, daily range): BP systolic 101–124; BP diastolic 54–79; PULSE 60–77; RESP 18–20; TEMP 36.1–37.6; O2SAT 93–98
--- NOTE | 2022-06-13 05:22 | PC.NURSE ---
[id number] Pt slept well during night, denies pain, on 2LPM O2 with sats >88%.
[2022-06-13] MEDS: OMEPRAZOLE 20 MG CAPSULE DR 40 MG PO (06:23)
[2022-06-13 08:41] LABS: HCO3 VBG 21 mmol/L (21-28); PCO2 VBG 38 mmHG (40-50); PO2 VBG 94.5 mmHG (25-47); pH VBG 7.354 (7.32-7.43)
[2022-06-13 08:43] LABS: Basophils Absolute Auto 0.02 K/uL (0.00-0.30); Basophils Percent Auto 0.4 % (0.0-3.0); Eosinophils Absolute Auto 0.15 K/uL (0.00-0.50); Eosinophils Percent Auto 3.2 % (0.0-7.0); Hematocrit 25.9 % (37.0-53.0); Hemoglobin* 8.3 gm/dL (13.5-17.5); Immature Granulocytes Abs Auto 0.01 K/uL (0.00-0.30); Immature Granulocytes Pct Auto 0.2 %; Lymphocytes Percent Auto 13.2 % (20-44); Mean Corpuscular HGB Conc 32 gm/dL (32-36); Mean Corpuscular Hemoglobin 29 pg (26-34); Mean Corpuscular Volume 92 fL (80-100); Neutrophils Absolute Auto 3.25 K/uL (1.7-7.0); Platelet Count* 152 K/uL (140-440); RDW Coefficient of Variation % 13.8 % (11.5-15.5); Red Blood Count 2.82 m/uL (4.30-5.90); White Blood Count* 4.71 K/uL (4.50-11.00)
[2022-06-13 08:45] LABS: Slide Review Reflex No
[2022-06-13 09:06] LABS: Chloride* 107 mmol/L (96-114); Sodium* 134 mmol/L (135-149)
[2022-06-13 09:07] LABS: Potassium* 4.7 mmol/L (3.6-5.1)
[2022-06-13 09:09] LABS: Carbon Dioxide* 19 mmol/L (20-32); Creatinine* 2.1 mg/dL (0.5-1.5); Est. Creatinine Clearance* 29.29; Estimated Glomerular Filt Rate 34 ml/min
[2022-06-13 09:10] LABS: Blood Urea Nitrogen* 45 mg/dL (7-30); Calcium* 8.4 mg/dL (8.4-10.6); Glucose* 152 mg/dL (60-115)
[2022-06-13] MEDS: ASPIRIN 81 MG TAB.CHEW PO (09:15)
[2022-06-13] MEDS: carvediloL 6.25 MG TABLET 3.125 MG PO ×2 (09:15→20:32)
[2022-06-13] MEDS: TORSEMIDE 100 MG TABLET PO ×2 (09:16→14:38)
[2022-06-13] MEDS: SODIUM CHLORIDE 0.9 % (FLUSH) 10 ML SYRINGE 5 ML IVF ×2 (09:16→20:32)
[2022-06-13] MEDS: SENNOSIDES/DOCUSATE TABLET 1 TAB PO ×2 (09:16→20:32)
--- NOTE | 2022-06-13 15:23 | ONC.NURNOTE ---
alert and oriented. up in room with 2lNC ad rakesh. steady. voided 500cc this am after Terosemide. large soft liquid brown Guiac neg stool 400cc. good po intake. ate late breakfast and no lunch. ate it all. blood sugar prior 152. pt declined sliding scale insulin. cr RLL. pt abld to cough use Is and clear airway on his own. states still holding extra fluid. MD aware. pt given another 100mg of Terosemide after checking his VS. no sob with increase activity. very talkative. not receptive to getting a covid shot. states ill be back . joking. I have renal and heart failure. it is what it is.
--- NOTE | 2022-06-13 16:07 | PM.IMPN1 ---
Progress Note: A&P Assessment and plan (1) Acute and chronic respiratory failure with hypoxia: Problem details: Primarily due to heart failure. Continue vigorous diuresis. Status: Acute (2) Acute on chronic combined systolic (congestive) and diastolic (congestive) heart failure: Problem details: Last TTE 05/14/22 Final Impressions: 1. Technically limited exam. 2. Moderately increased LV size, normal wall thickness, mildly reduced global systolic function with an estimated EF of 40 - 45%. 3. Right ventricular cavity size is normal, global systolic RV function is normal. 4. Mildly enlarged left atrium. 5. The aortic valve is sclerotic and trileaflet, no stenosis and no regurgitation. 6. The mitral valve is sclerotic, mild mitral regurgitation. Continue vigorous diuresis with close monitoring of blood pressure, renal function, electrolytes Status: Acute (3) Anemia: Problem details: - previous outpatient hemoglobin 12.6 in 03/2021. Iron studies show iron deficiency. No obvious source of bleeding. Continue to trend. Stools are guaiac negative. Replace iron. Outpatient evaluation for iron deficiency anemia Status: Acute (4) COVID-19: Problem details: - patient not interested in vaccination - amenable to treatment with Remdesivir given comorbidities and tolerance of medication last year Status: Acute (5) IDDM (insulin dependent diabetes mellitus): Problem details: - most recent A1c 9.7 (03/2021) blood sugar control here has been fair. Status: Acute (6) Kidney disease, chronic, stage III (GFR 30-59 ml/min): Problem details: Watch fluid and electrolyte status closely with vigorous diuresis. Status: Acute Plan Continue in hospital for ongoing diuresis and management of hypoxic respiratory failure. Time Spent With Patient Total time spent: Total time spent today is 40 minutes, 30 minutes in coordination of care and discussing with patient other providers ongoing evaluation management of heart failure and hypoxia Subjective Date Seen: 06/13/22 Interval history: 66-year-old male seen in followup of hypoxic respiratory failure due to acute on chronic heart failure in the context of stage 4 kidney disease, coronary artery disease and acute COVID infection. Patient reports feeling modestly better in the last couple days in the hospital. He is still requiring oxygen that he was discharged from the hospital a month ago. He has a cough with a lot of congestion. He does not think he is having a fever. Reports his appetite is good. Exam Narrative: Exam Narrative: He is alert and appears in no distress. Speech is normal. Respirations are clear to auscultation except for occasional rhonchi. Cardiovascular: S1, S2, regular rate and rhythm. Abdomen is soft without tenderness or mass. Extremities with 2+ to 3+ edema bilaterally. Const: Vital Signs, click to edit/add: Vital Signs - 24 hr 06/12/22 19:16 06/12/22 23:00 06/12/22 23:00 Temperature 99.3 F Pulse Rate 63 Pulse Rate [Pulse Oximeter] 65 Respiratory Rate 18 18 Blood Pressure [Le ft Arm] Blood Pressure [Ri ght Arm] 150/70 H Pulse Oximetry 96 Oxygen Delivery Me thod Nasal Cannula Oxygen Flow Rate 2 06/12/22 23:00 06/12/22 23:00 06/13/22 03:00 Temperature 99.5 F 99.6 F Pulse Rate Pulse Rate [Pulse Oximeter] 63 67 Respiratory Rate 20 20 20 Blood Pressure [Le ft Arm] 102/58 L 101/54 L Blood Pressure [Ri ght Arm] Pulse Oximetry 95 95 93 Oxygen Delivery Me thod Nasal Cannula Nasal Cannula Nasal Cannula Oxygen Flow Rate 2 2 2 06/13/22 07:50 06/13/22 09:00 06/13/22 09:00 Temperature 97 F L Pulse Rate 77 Pulse Rate [Pulse Oximeter] 60 Respiratory Rate 18 Blood Pressure [Le ft Arm] Blood Pressure [Ri ght Arm] 104/57 L Pulse Oximetry 94 Oxygen Delivery Me thod Nasal Cannula Oxygen Flow Rate 2 06/13/22 09:00 06/13/22 11:30 06/13/22 14:00 Temperature 97 F L 97 F L Pulse Rate Pulse Rate [Pulse Oximeter] 60 65 64 Respiratory Rate 18 18 Blood Pressure [Le ft Arm] Blood Pressure [Ri ght Arm] 105/73 Pulse Oximetry 94 94 Oxygen Delivery Me thod Nasal Cannula Nasal Cannula Oxygen Flow Rate 2 2 06/13/22 15:38 Temperature Pulse Rate Pulse Rate [Pulse Oximeter] Respiratory Rate Blood Pressure [Le ft Arm] Blood Pressure [Ri ght Arm] Pulse Oximetry 97 Oxygen Delivery Me thod Nasal Cannula Oxygen Flow Rate 2 Documenting provider has reviewed patient's vital signs: yes Labs Labs: Laboratory Results - last 24 hr 06/13/22 06/13/22 06/13/22 08:30 08:30 08:30 WBC 4.71 RBC 2.82 L Hgb 8.3 L Hct 25.9 L MCV 92 MCH 29 MCHC 32 RDW Coeff of Won 13.8 Plt Count 152 Neut % (Auto) 69.0 Lymph % (Auto) 13.2 L [place] % (Auto) 14.0 H Eos % (Auto) 3.2 Baso % (Auto) 0.4 Neut # (Auto) 3.25 Lymph # (Auto) 0.60 L [place] # (Auto) 0.70 Eos # (Auto) 0.15 Baso # (Auto) 0.02 VBG pH 7.354 VBG pCO2 38 L VBG pO2 94.5 H VBG HCO3 21 Sodium 134 L Potassium 4.7 Chloride 107 Carbon Dioxide 19 L BUN 45 H Creatinine 2.1 H Estimated Creat Clear 29.29 Estimated GFR 34 Glucose 152 H Calcium 8.4
[2022-06-13] MEDS: ATORVASTATIN CALCIUM 40 MG TABLET 80 MG PO (20:32)
[2022-06-13] MEDS: GABAPENTIN 300 MG CAPSULE PO (20:32)
[2022-06-13] MEDS: TAMSULOSIN HCL 0.4 MG CAPSULE PO (20:32)
--- NOTE | 2022-06-13 22:31 | PC.NURSE ---
Shift [id number]- Patient is more wakeful this shift than same shift yesterday. He denies pain. Occasional wet cough. He is up ad rakesh. He states he feels better than he did yesterday. Remains on 2L O2 with saturations in mid 90s%.
[2022-06-14] VITALS (7 sets, daily range): BP systolic 103–141; BP diastolic 57–75; PULSE 59–67; RESP 16–18; TEMP 36.6–37.1; O2SAT 96–99
--- NOTE | 2022-06-14 05:29 | PC.NURSE ---
Pt rested well this night. Up IND in room. Remains on 2L NC as he does while at home. Persistent Cough. Afebrile. VS unremarkable.
[2022-06-14] MEDS: OMEPRAZOLE 20 MG CAPSULE DR 40 MG PO (06:39)
[2022-06-14] MEDS: TORSEMIDE 100 MG TABLET PO (06:40)
[2022-06-14] MEDS: SODIUM CHLORIDE 0.9 % (FLUSH) 10 ML SYRINGE 5 ML IVF (09:06)
[2022-06-14] MEDS: ASPIRIN 81 MG TAB.CHEW PO (09:06)
[2022-06-14] MEDS: carvediloL 6.25 MG TABLET 3.125 MG PO (09:07)
[2022-06-14] MEDS: FERROUS SULFATE 325 MG TABLET PO (09:07)
[2022-06-14] MEDS: SENNOSIDES/DOCUSATE TABLET 1 TAB PO (09:07)
[2022-06-14 10:39] LABS: Basophils Absolute Auto 0.01 K/uL (0.00-0.30); Basophils Percent Auto 0.2 % (0.0-3.0); Eosinophils Absolute Auto 0.31 K/uL (0.00-0.50); Eosinophils Percent Auto 6.9 % (0.0-7.0); Hematocrit 26.7 % (37.0-53.0); Hemoglobin* 8.6 gm/dL (13.5-17.5); Lymphocytes Percent Auto 17.3 % (20-44); Mean Corpuscular HGB Conc 32 gm/dL (32-36); Mean Corpuscular Hemoglobin 29 pg (26-34); Mean Corpuscular Volume 90 fL (80-100); Neutrophils Absolute Auto 2.87 K/uL (1.7-7.0); Neutrophils Percent Auto 63.6 % (42.0-72.0); Platelet Count* 180 K/uL (140-440); RDW Coefficient of Variation % 13.9 % (11.5-15.5); Red Blood Count 2.96 m/uL (4.30-5.90); White Blood Count* 4.51 K/uL (4.50-11.00)
[2022-06-14 10:47] LABS: Slide Review Reflex No
[2022-06-14 10:52] LABS: Chloride* 104 mmol/L (96-114); Sodium* 135 mmol/L (135-149)
[2022-06-14 10:53] LABS: Potassium* 4.6 mmol/L (3.6-5.1)
[2022-06-14 10:55] LABS: Carbon Dioxide* 23 mmol/L (20-32); Est. Creatinine Clearance* 30.75; Estimated Glomerular Filt Rate 36 ml/min
[2022-06-14 10:56] LABS: Blood Urea Nitrogen* 55 mg/dL (7-30); Calcium* 8.7 mg/dL (8.4-10.6); Glucose* 278 mg/dL (60-115)
--- NOTE | 2022-06-14 13:04 | PM.DS1 ---
DS: Providers Provider Date Seen: 06/14/22 Date of admission: 06/11/22 00:04 Primary care physician: Not a Local Provider Admitting Clinician: Maite Mcdonald MD Attending Physician on discharge: Maite Mcdonald MD Date of Discharge: 06/14/22 DS: Diagnosis Discharge Diagnosis (1) Acute and chronic respiratory failure with hypoxia: Status: Acute Problem details: Primarily due to heart failure. Responded to vigorous diuresis. (2) Acute on chronic combined systolic (congestive) and diastolic (congestive) heart failure: Status: Acute Problem details: Last TTE 05/14/22 Final Impressions: 1. Technically limited exam. 2. Moderately increased LV size, normal wall thickness, mildly reduced global systolic function with an estimated EF of 40 - 45%. 3. Right ventricular cavity size is normal, global systolic RV function is normal. 4. Mildly enlarged left atrium. 5. The aortic valve is sclerotic and trileaflet, no stenosis and no regurgitation. 6. The mitral valve is sclerotic, mild mitral regurgitation. Continue vigorous diuresis with close monitoring of blood pressure, renal function, electrolytes (3) Anemia: Status: Acute Problem details: - previous outpatient hemoglobin 12.6 in 03/2021. Iron studies show iron deficiency. No obvious source of bleeding. Continue to trend. Stools are guaiac negative. Replace iron. Outpatient evaluation for iron deficiency anemia (4) COVID-19: Status: Acute Problem details: - patient not interested in vaccination - treated with Remdesivir (5) IDDM (insulin dependent diabetes mellitus): Status: Acute Problem details: - most recent A1c 9.7 (03/2021) blood sugar control here has been fair. (6) Kidney disease, chronic, stage III (GFR 30-59 ml/min): Status: Acute Problem details: Watch fluid and electrolyte status closely with vigorous diuresis. Stage IIIB chronic kidney disease (7) Hyperkalemia: Status: Acute Problem details: Hyperkalemia resolved with increased diuresis and stopping lisinopril. Add discharge lisinopril resumed at 2.5 mg daily. Recheck electrolytes next week DS: Summary Hospital Course Hospital Course: 58-year-old male with acute on chronic dyspnea. Patient has been treated for heart failure at a hospitalization in [place] in April. Has had progressive worsening of his dyspnea recently. On admission he was found to be in heart failure again. He had IV followed by increased oral torsemide dosing for heart failure and responded well to this. Also at admission he had elevated potassium of 5.8. His lisinopril was held and with vigorous diuresis his potassium has come down to 4.6. Creatinine has gone from 1.7-2.0 with vigorous diuresis. His weight is down about 3 kg. Status at Discharge Overall status at discharge: patient is progressing back to baseline Time Spent with Patient Time attestation: Total time spent providing and/or coordinating discharge services: Time spent: Greater than 30 minutes Exam Narrative: Exam Narrative: He is alert and appears in no distress. Respirations are clear to auscultation. Cardiovascular: S1, S2, regular rate and rhythm. Abdomen is soft without tenderness or mass. Edema is much better with support hose in place Const: Vital Signs, click to edit/add: Vital Signs - 24 hr 06/13/22 14:00 06/13/22 15:38 06/13/22 16:01 Temperature 97 F L Pulse Rate 67 Pulse Rate [Pulse Oximeter] 64 Respiratory Rate 18 Blood Pressure [Ri ght Arm] 105/73 Pulse Oximetry 94 97 Oxygen Delivery Me thod Nasal Cannula Nasal Cannula Oxygen Flow Rate 2 2 06/13/22 19:20 06/13/22 22:57 06/13/22 23:25 Temperature 98 F 98.1 F Pulse Rate 65 Pulse Rate [Pulse Oximeter] 68 62 Respiratory Rate 18 18 Blood Pressure [Ri ght Arm] 124/79 110/56 L Pulse Oximetry 98 98 Oxygen Delivery Me thod Room Air Nasal Cannula Oxygen Flow Rate 2 06/13/22 23:27 06/13/22 23:27 06/14/22 03:05 Temperature 98.2 F Pulse Rate Pulse Rate [Pulse Oximeter] 62 59 L Respiratory Rate 18 18 18 Blood Pressure [Ri ght Arm] 103/57 L Pulse Oximetry 98 96 Oxygen Delivery Me thod Nasal Cannula Nasal Cannula Oxygen Flow Rate 2 2 06/14/22 07:34 06/14/22 07:55 06/14/22 10:30 Temperature 98.7 F Pulse Rate 67 Pulse Rate [Pulse Oximeter] 63 Respiratory Rate 16 Blood Pressure [Ri ght Arm] 141/75 H Pulse Oximetry 96 96 Oxygen Delivery Me thod Nasal Cannula Nasal Cannula Oxygen Flow Rate 2 2 06/14/22 12:04 06/14/22 12:25 Temperature 97.9 F 97.9 F Pulse Rate 67 Pulse Rate [Pulse Oximeter] 67 Respiratory Rate 16 16 Blood Pressure [Ri ght Arm] 127/72 Pulse Oximetry 99 Oxygen Delivery Me thod Nasal Cannula Oxygen Flow Rate 2 Documenting provider has reviewed patient's vital signs: yes DS: Data Data Completed and Pending Labs on day of discharge: Labs from last 24 hours 06/14/22 06/14/22 10:32 10:32 WBC 4.51 RBC 2.96 L Hgb 8.6 L Hct 26.7 L MCV 90 MCH 29 MCHC 32 RDW Coeff of Won 13.9 Plt Count 180 Neut % (Auto) 63.6 Lymph % (Auto) 17.3 L [place] % (Auto) 12.0 H Eos % (Auto) 6.9 Baso % (Auto) 0.2 Neut # (Auto) 2.87 Lymph # (Auto) 0.80 L [place] # (Auto) 0.50 Eos # (Auto) 0.31 Baso # (Auto) 0.01 Sodium 135 Potassium 4.6 Chloride 104 Carbon Dioxide 23 BUN 55 H Creatinine 2.0 H Estimated Creat Clear 30.75 Estimated GFR 36 Glucose 278 H Calcium 8.7 Discharge Plan Discharge Disposition: Home, Self-Care Date of Admission: 06/11/22 00:04 Attending Provider on Discharge: Ajay Jordan Primary Care Provider: Provider,Not a Local Condition: Improved Anticipated Discharge Date/Time: 06/14/22 11:52 Discharge Medications: New sennosides-docusate sodium [Stool Softener-Laxative] 8.6-50 mg Tablet 2 tab-cap PO DAILY Qty: 100 0RF ferrous sulfate 325 mg (65 mg iron) Tablet 325 mg PO DAILYWM Qty: 100 0RF Continued carvedilol 3.125 mg tablet 3.125 mg PO BID Label Comments: TAKE 1 TABLET BY MOUTH TWICE DAILY gabapentin 300 mg capsule 300 mg PO HS Label Comments: TAKE 1 CAPSULE BY MOUTH EVERY NIGHT AT BEDTIME glipizide-metformin 5-500 mg tablet 1 tab PO BID Label Comments: TAKE 2 TABLETS BY MOUTH TWICE DAILY tamsulosin 0.4 mg capsule 0.4 mg PO DAILY Label Comments: TAKE 1 CAPSULE BY MOUTH DAILY cholecalciferol (vitamin D3) 125 mcg (5,000 unit) capsule 5,000 unit PO DAILY Label Comments: TAKE 1 CAPSULE BY MOUTH DAILY atorvastatin 80 mg tablet 80 mg PO HS Label Comments: TAKE 1 TABLET BY MOUTH EVERY NIGHT AT BEDTIME aspirin [Aspirin Childrens] 81 mg tablet,chewable 81 mg PO DAILY Changed torsemide 100 mg tablet 100 mg PO BID Qty: 60 0RF Label Comments: TAKE 1/2 TABLET BY MOUTH TWICE DAILY lisinopril 5 mg tablet 2.5 mg PO DAILY Qty: 30 0RF Label Comments: TAKE 1 TABLET BY MOUTH DAILY Discharge Orders: Discharge Order (Routine); Ordered 06/14/22 Ordered By: Ajay Jordan Patient Education: Iron Supplements (By mouth), Senna (By mouth), Heart Failure (DC), COVID-19 (Coronavirus Disease 2019) (DC) Additional Instructions: See your cable armorer at next available appointment to review management of your heart disease. See your kidney doctor at next available appointment to follow-up your kidney disease. Wear tight stockings to control your leg edema. Activity Level: Activity as Tolerated Discharge Diet: Diabetic and 2 gm Sodium Follow Up Appointments: [facility] [Other] (Patient will have to call and schedule through the [facility] for the next available cable armorer appointment.) Dayanara Darling MD [Referring] - (Follow-up in 3-4 days for recheck of your breathing and blood tests, basic metabolic panel and CBC. Patient will have to call and schedule this appointment tomorrow on 06/15/22.) Provider,Not a Local [Primary Care Provider] - Forms: Direct Sitters Info Instructions
--- NOTE | 2022-06-14 13:34 | PC.NURSE ---
Patient is being discharged today. PIV taken out and catheter intact. Vital signs within normal limits. Has been having oxygen on and off while in chair. Has been maintaining 95% with and without oxygen. Per MD, no need to titrate at this time. Patient need follow up with PCP, Cardiology and nephrology. Unfortunately, the clinics are all closed today due to the holiday. Phone numbers have been provided and instructed patient to call tomorrow to get these scheduled RACHEL. Patient verbalized understanding. Patient stated he has a home oxygen tank and does not need anything from us. Encouraged patient to follow a diabetic and low sodium diet. Patient stated he knows what that means. TEDs were shown how to get on and off and to wear them at home. Patient stated he will have help at home to get them on and off. LBM was yesterday. No signs of bleeding. New prescriptions sent to pharmacy. Patient will pick them up on his way home. Lung sounds are coarse/crackly but moving air. Edema in lower extremities present but better since admission. Blood sugars are being treated with insulin in hospital. Patient will resume normal treatment at home. Patient has been ambulating around room without difficulty. All questions answered. Waiting for ride to get here and then patient will DC in wheelchair.
--- NOTE | 2022-06-14 13:59 | PC.NURSE ---
ride came. Patient transported to front via wheelchair. All questions answered.
== END 2022-06-14 13:59 | disposition home or self-care (01) | DRG 189 ==
LOC: ED 21:08 → MEDSURG 23:43
PROVIDERS: Family Medicine; Admitting Provider Family Medicine; Emergency Provider Emergency Medicine; Visit Provider Family Medicine
DX: J96.21 Acute and chronic respiratory failure with hypoxia (principal); I50.43 Acute on chronic combined systolic (congestive) and diastolic (congestive) heart failure; U07.1 COVID-19; D50.9 Iron deficiency anemia, unspecified; E11.22 Type 2 diabetes mellitus with diabetic chronic kidney disease; N18.31 Chronic kidney disease, stage 3a; E87.5 Hyperkalemia
CPT/HCPCS: 36415; 51798; 71045; 80048; 80076; 82803; 82962; 83540; 83550; 83880; 84443; 84484; 85025; 85045; 85610; 86140; 87635; 93005; 99285; G0378; A9270; J1650; J1940; J7050

== ENCOUNTER 2022-06-23 20:43 | Inpatient (IN) | payer MEDICARE, BC, SELFPAY ==
[2022-06-23 20:52] VITALS: BP 125/57; RESP 18; TEMP 36.3; O2SAT 94; BMI 36.5
[2022-06-23 21:06] VITALS: PULSE 61
[2022-06-23 21:31] LABS: Basophils Percent Auto 0.2 % (0.0-3.0); Eosinophils Percent Auto 1.9 % (0.0-7.0); Hematocrit 34.1 % (37.0-53.0); Immature Granulocytes Pct Auto 0.3 %; Lymphocytes Percent Auto 14.4 % (20-44); Mean Corpuscular HGB Conc 32 gm/dL (32-36); Mean Corpuscular Hemoglobin 29 pg (26-34); Mean Corpuscular Volume 90 fL (80-100); Monocytes Percent Auto 11.3 % (0.0-11.0); Neutrophils Percent Auto 71.9 % (42.0-72.0); Platelet Count* 295 K/uL (140-440); RDW Coefficient of Variation % 13.2 % (11.5-15.5); Red Blood Count 3.79 m/uL (4.30-5.90); White Blood Count* 11.83 K/uL (4.50-11.00)
[2022-06-23 21:33] LABS: Slide Review Reflex No
[2022-06-23 21:43] LABS: Chloride* 99 mmol/L (96-114)
[2022-06-23 21:44] LABS: Potassium* 5.9 mmol/L (3.6-5.1); Sodium* 137 mmol/L (135-149)
[2022-06-23 21:46] LABS: Creatinine* 5.6 mg/dL (0.5-1.5); Est. Creatinine Clearance* 11.39; Estimated Glomerular Filt Rate 10 ml/min
[2022-06-23 21:47] LABS: Blood Urea Nitrogen* 88 mg/dL (7-30); Calcium* 9.5 mg/dL (8.4-10.6); Carbon Dioxide* 27 mmol/L (20-32); Glucose* 130 mg/dL (60-115)
[2022-06-23 22:23] LABS: SARS Antigen* negative (Negative)
--- NOTE | 2022-06-23 22:25 | PM.IMHP1 ---
Hospitalist- H&P: HPI History of Present Illness Date Seen: 06/23/22 Chief complaint: Troubling Kidney Labs Narrative: ADMISSION HISTORY AND PHYSICAL - HOSPITALIST Chief Complaint: My doctor told me to come to the ER HPI: Gasper was at a routine office visit yesterday when he was noted to have a creatinine greater than 5. He felt fine. He was told to come to the ED. He was just admitted with our team in May for systolic CHF exacerbation. He was weaned from oxygen. He was aggressively diuresed. His electrolyte abnormalities were addressed. He had an echo. This is reviewed tonight. It appears the restarted his lisinopril and that he actually went home on 100 mg of torsemide b.i.d. when he previously was on 50 sometimes 50 b.i.d. depending on his legs prior to admission. I've updated the PFSH, medications and allergies in the [facility] tabs. INVESTIGATIONS: LABS/MICRO/ECG/IMAGING Afebrile Blood pressure 125/57 Pulse 60s Respiratory rate 18 Pulse ox 94% on room air Weight 102.5 kilos, discharge weight 109.76 kilos Hemoglobin is 11.0 which is up from his discharge hemoglobin of 8.6 Mild elevation in his white blood cell count 11.8 Platelets are normal Potassium is 5.9 at 9:25 pm 06/23, previously it had been 4.6 I discharge He is definitely dry - his BUN is 88, creatinine is 5.6 Glucose is 130 Antigen is negative for COVID, last positive COVID PCR was 06/10/2022 REVIEW OF SYSTEMS: 12-point ROS completed with patient and negative unless otherwise stated in HPI or below. PHYSICAL EXAM: CODE STATUS: FULL CODE CONSTITUTIONAL: Conversive, good historian. A/O. Knows setting and context. VITAL SIGNS: see record. HEENT: Normocephalic, atraumatic. PERRL, EOMI, conjunctivae pink, no scleral icterus. Ears and nose externally normal. Pharynx normal. NECK: No JVD. No carotid bruit, no thyromegaly, no adenopathy. CHEST: Clear to auscultation bilaterally HEART: S1 and S2 normal. No harsh murmurs. No edema MUSCULOSKELETAL: No gross joint deformity or swelling. NEURO: Cranial nerves intact. Grossly intact. No asymmetric findings. SKIN: No rashes, petechiae, concerning changes PSYCHIATRIC: Euthymic. ADMIT TO MEDSURG: FLOOR CARE DVT: Lovenox GI: PO intake Time spent: 70 minutes examining patient, conferring with family and patient, care staff, developing care plan [facility] Medical History Anemia Essential hypertension Hyperkalemia Hyperlipidemia IDDM (insulin dependent diabetes mellitus) Kidney disease, chronic, stage III (GFR 30-59 ml/min) NSTEMI (non-ST elevated myocardial infarction) LILLIANA (obstructive sleep apnea) Systolic heart failure secondary to coronary artery disease Surgical History S/P coronary artery stent placement Social History Narrative: Five adult children. Lives with son Bonifacio and [id number] near [place]. Not currently . Worked as a lama and trash truck driver. Former smoker, quit around the 1999. Social alcohol use. Requests full code status. Highest level of school completed/degree received: high school graduate Smoking Status: Former smoker Do you use any of these nicotine containing products: None Second hand tobacco smoke exposure: No How often do you have a drink containing alcohol: monthly or less How often do you have six or more drinks on one occasion: Never AUDIT-C Alcohol total score: 1 Non-prescribed substance use: denies use Caffeine: Yes service: No Meds Home Medications and Allergies Home Medications Medication Instructions Recorded Confirmed Type aspirin 81 mg chewable tablet 81 mg PO DAILY 06/10/22 06/23/22 History (Aspirin Childrens) atorvastatin 80 mg tablet 80 mg PO HS 06/10/22 06/23/22 History carvedilol 3.125 mg tablet 3.125 mg PO BID 06/10/22 06/23/22 History cholecalciferol (vitamin D3) 125 5,000 unit PO DAILY 06/10/22 06/23/22 History mcg (5,000 unit) capsule gabapentin 300 mg capsule 300 mg PO HS 06/10/22 06/23/22 History glipizide 5 mg-metformin 500 mg 1 tab PO BID 06/10/22 06/23/22 History tablet tamsulosin 0.4 mg capsule 0.4 mg PO DAILY 06/10/22 06/23/22 History Allergies Allergy/AdvReac Type Severity Reaction Status Date / Time No Known Drug Allergies Allergy Verified 06/10/22 15:58 Exam Const: Vital Signs, click to edit/add: Vital Signs - 24 hr 06/23/22 20:52 06/23/22 21:06 Temperature 97.4 F L Pulse Rate [Bilate ral] 61 Respiratory Rate 18 Blood Pressure [Le ft Upper Arm] 125/57 L Pulse Oximetry 94 Oxygen Delivery Me thod Room Air Hospitalist - H&P: Result Labs Labs: Short CBC 06/23/22 Range/Units 21:25 WBC 11.83 H (4.50-11.00) K/uL Hgb 11.0 L (13.5-17.5) gm/dL Hct 34.1 L (37.0-53.0) % Plt Count 295 (140-440) K/uL BMP 06/23/22 21:25 Sodium 137 Potassium 5.9 H Chloride 99 Carbon Dioxide 27 BUN 88 H Creatinine 5.6 H Glucose 130 H Calcium 9.5 Assessment and Plan Assessment and plan (1) JOSELIN (acute kidney injury): Problem comment: I think this is iatrogenic from his diuretic, hypertensive and diabetic and regimen. It appears from his May admission his 50 mg of torsemide q.a.m. (and sometimes he took a 2nd 50 mg p.r.n. leg edema) was increased to 100 mg b.i.d. Given his weight loss, BUN and creatinine tonight I would suspect that he is prerenal and is intravascularly depleted. In addition he restarted taking metformin and lisinopril. I will run fluids at a bolus and maintenance rate with a mind set toward his history of systolic heart failure and we can recheck labs in the morning. Status: Acute (2) Hyperkalemia: Problem comment: He had issues with hyperkalemia in his last admission. They held his lisinopril, restarting it at discharge. This is being held once again. Status: Acute (3) Systolic heart failure secondary to coronary artery disease: Problem comment: -on room air. No current symptoms of exacerbation of heart failure. Last TTE 05/14/22 Final Impressions: 1. Technically limited exam. 2. Moderately increased LV size, normal wall thickness, mildly reduced global systolic function with an estimated EF of 40 - 45%. 3. Right ventricular cavity size is normal, global systolic RV function is normal. 4. Mildly enlarged left atrium. 5. The aortic valve is sclerotic and trileaflet, no stenosis and no regurgitation. 6. The mitral valve is sclerotic, mild mitral regurgitation. Continue vigorous diuresis with close monitoring of blood pressure, renal function, electrolytes Status: Acute (4) Kidney disease, chronic, stage III (GFR 30-59 ml/min): Problem comment: Noted Status: Acute (5) IDDM (insulin dependent diabetes mellitus): Problem comment: A1C added to admission labs; SSI/Accuchecks -holding his glipizide-metformin secondary to JOSELIN Status: Acute (6) Essential hypertension: Problem comment: holding lisinopril and torsedmide for now. Status: Acute (7) Anemia: Problem comment: - previous outpatient hemoglobin 12.6 in 03/2021. Iron studies show iron deficiency. No obvious source of bleeding. Continue to trend. Stools are guaiac negative. Replace iron. Outpatient evaluation for iron deficiency anemia Status: Acute
[2022-06-23 22:48] LABS: Appearance Urine Clear (Clear); Bilirubin Urine Negative (Negative); Blood Urine Negative (Negative); Color Urine Yellow (Yellow); Glucose Urine Negative (Negative); Ketones Urine Trace (Negative); pH Urine 5.5 (5.0-8.5)
[2022-06-23 22:49] LABS: Bacteria Urine Few; Leukocyte Esterase Urine 1+ (Negative); Nitrite Urine Negative (Negative); Protein Urine 2+ (Negative); RBC Urine 0-2 (0-2); Squamous Epithelial Cell Urine Few (None-Few); Urobilinogen Urine 0.2 (0.2-1.0)
--- NOTE | 2022-06-23 22:50 | ED.NURSE ---
report to general medical practitioner.
--- NOTE | 2022-06-23 22:51 | ED_ITS ---
HPI - General Adult General Date Seen: 06/23/22 Chief complaint: Unspecified Complaint, Adult Stated complaint: Troubling Kidney Labs Time Seen by Provider: 06/23/22 20:50 Source: patient and family Mode of arrival: ambulatory Limitations: no limitations History of Present Illness HPI narrative: Patient is a 58-year-old gentleman who presents here for evaluation with his daughter cause of abnormal blood tests, he notes that he went to see his doctor today in follow-up as he was admitted here to the hospital with an exacerbation of CHF along with COVID over [place]. He normally has elevated creatinine, but his doctor was concern is his creatinine came back at 5 she directed him to the hospital. He otherwise is asymptomatic denying fevers chills or sweats he is breathing fine, his edema is much improved, and does not really no other than the abnormal lab tests why is here. He has diuresed aggressively, because he has congestive heart failure, and by his notes an ejection fraction of 15%. He does have a history of ischemic heart disease in does have stents. His appointment to see [facility], coming up in the near future. He tells me he would not agree to dialysis, I explained to him that we do not do dialysis at this hospital. And really the only indication for dialysis would be chronically elevated creatinine, and not to the degree he has rate now. Other issues could be abnormal electrolytes, which can be life-threatening which would have to be dealt with right away. Denies fevers chills or sweats, otherwise feels pretty good. He tells me that he would like to be full code, with CPR and intubation. Treatments prior to arrival: none Related Data Home Medications Medication Instructions Recorded Confirmed aspirin 81 mg chewable tablet 81 mg PO DAILY 06/10/22 06/23/22 (Aspirin Childrens) atorvastatin 80 mg tablet 80 mg PO HS 06/10/22 06/23/22 carvedilol 3.125 mg tablet 3.125 mg PO BID 06/10/22 06/23/22 cholecalciferol (vitamin D3) 125 5,000 unit PO DAILY 06/10/22 06/23/22 mcg (5,000 unit) capsule gabapentin 300 mg capsule 300 mg PO HS 06/10/22 06/23/22 glipizide 5 mg-metformin 500 mg 1 tab PO BID 06/10/22 06/23/22 tablet tamsulosin 0.4 mg capsule 0.4 mg PO DAILY 06/10/22 06/23/22 Previous Rx's Medication Instructions Recorded ferrous sulfate 325 mg (65 mg 325 mg PO DAILYWM #100 tabs 06/14/22 iron) tablet lisinopril 5 mg tablet 2.5 mg PO DAILY #30 tabs 06/14/22 sennosides 8.6 mg-docusate sodium 2 tab-cap PO DAILY #100 tabs 06/14/22 50 mg tablet (Stool Softener-Laxative) torsemide 100 mg tablet 100 mg PO BID #60 tabs 06/14/22 Allergies Allergy/AdvReac Type Severity Reaction Status Date / Time No Known Drug Allergies Allergy Verified 06/10/22 15:58 Review of Systems Status of ROS: Reports: 10 or more systems reviewed and unremarkable except as noted in History and below [facility] Medical History Anemia Essential hypertension Hyperkalemia Hyperlipidemia IDDM (insulin dependent diabetes mellitus) Kidney disease, chronic, stage III (GFR 30-59 ml/min) NSTEMI (non-ST elevated myocardial infarction) LILLIANA (obstructive sleep apnea) Systolic heart failure secondary to coronary artery disease Surgical History S/P coronary artery stent placement Social History Narrative: Five adult children. Lives with son Bonifacio and [id number] near [place]. Not currently . Worked as a lama and ice cream truck driver. Former smoker, quit around the year 1999. Social alcohol use. Requests full code status. Highest level of school completed/degree received: high school graduate Smoking Status: Former smoker Do you use any of these nicotine containing products: None Second hand tobacco smoke exposure: No How often do you have a drink containing alcohol: monthly or less How often do you have six or more drinks on one occasion: Never AUDIT-C Alcohol total score: 1 Non-prescribed substance use: denies use Caffeine: Yes service: No Exam Narrative: Exam Narrative: Patient is seen in room 7 he is in no apparent distress, speaking to me normally. A little hard hearing, vital signs are all normal. Pupils are equal round reactive to light there is no scleral icterus or redness TMs are normal oropharynx normal his JVP is flat, carotid upstrokes are equal bilaterally, cranial nerves 3-12 are normal, a bit of a barrel shaped chest, some mild crackles in the bases, he has no wheezes noted, heart sounds are normal, no clicks murmurs or gallops, abdomen is soft and pot belly, there is no guarding no organomegaly. Mild pitting edema of the lower extremities is noted up to where his socks and in mid calf. No tenderness to palpation. Moves all extremities independently and well. Const: Vital Signs, click to edit/add: Vital Signs - 24 hr 06/23/22 20:52 06/23/22 21:06 Temperature 97.4 F L Pulse Rate [Bilate ral] 61 Respiratory Rate 18 Blood Pressure [Le ft Upper Arm] 125/57 L Pulse Oximetry 94 Oxygen Delivery Me thod Room Air Documenting provider has reviewed patient's vital signs: yes Course Course Hospital Course: I spoke to the patient, given his hyperkalemia at 5.9 I do not think it would be unreasonable to bring him in monitor him, and tried a decrease some of the stores of his potassium. Conversation then can be held with him, for likely outpatient follow-up for assessment of his kidney issues with Nephrology. I then spoke to Dr. Ramos from [facility] Medicine she agreed to admit him. Vital Signs Vital signs: Initial Vital Signs Temperature 97.4 F L 06/23/22 20:52 Temperature Source Temporal Artery Scan 06/23/22 20:52 Respiratory Rate 18 06/23/22 20:52 Blood Pressure 125/57 L 06/23/22 20:52 Blood Pressure Mean 79 06/23/22 20:52 Pulse Oximetry 94 06/23/22 20:52 Oxygen Delivery Method 06/23/22 20:52 Vital Signs Temperature 97.4 F L 06/23/22 20:52 Respiratory Rate 18 06/23/22 20:52 Blood Pressure 125/57 L 06/23/22 20:52 Pulse Oximetry 94 06/23/22 20:52 Oxygen Delivery Method 06/23/22 20:52 Temperature 97.4 F L 06/23/22 20:52 Pulse Rate 61 06/23/22 21:06 Respiratory Rate 18 06/23/22 20:52 Blood Pressure 125/57 L 06/23/22 20:52 Pulse Oximetry 94 06/23/22 20:52 Oxygen Delivery Method 06/23/22 20:52 Medical Decision Making MDM Narrative Medical decision making narrative: During this evaluation I considered multiple diagnosis is including heart failure, electrolyte abnormality, kidney issues, hepatic failure, sepsis Medical Records Medical records reviewed: Yes I reviewed the patient's medical records Lab Data Lab results reviewed: Yes I reviewed the patient's lab results Labs: Lab Results 06/23/22 06/23/22 06/23/22 Range/Units 21:25 21:25 22:01 WBC 11.83 H (4.50-11.00) K/uL RBC 3.79 L (4.30-5.90) m/uL Hgb 11.0 L (13.5-17.5) gm/dL Hct 34.1 L (37.0-53.0) % MCV 90 (80-100) fL MCH 29 (26-34) pg MCHC 32 (32-36) gm/dL RDW Coeff of Won 13.2 (11.5-15.5) % Plt Count 295 (140-440) K/uL Neut % (Auto) 71.9 (42.0-72.0) % Lymph % (Auto) 14.4 L (20-44) % [place] % (Auto) 11.3 H (0.0-11.0) % Eos % (Auto) 1.9 (0.0-7.0) % Baso % (Auto) 0.2 (0.0-3.0) % Neut # (Auto) 8.50 H (1.7-7.0) K/uL Lymph # (Auto) 1.70 (0.90-2.90) K/uL [place] # (Auto) 1.30 H (0.00-0.90) K/UL Eos # (Auto) 0.20 (0.00-0.50) K/uL Baso # (Auto) 0.00 (0.00-0.30) K/uL Sodium 137 (135-149) mmol/L Potassium 5.9 H (3.6-5.1) mmol/L Chloride 99 (96-114) mmol/L Carbon Dioxide 27 (20-32) mmol/L BUN 88 H (7-30) mg/dL Creatinine 5.6 H (0.5-1.5) mg/dL Estimated Creat Clear 11.39 Estimated GFR 10 ml/min Glucose 130 H (60-115) mg/dL Calcium 9.5 (8.4-10.6) mg/dL Urine Color (Yellow) Urine Appearance (Clear) Urine pH (5.0-8.5) Ur Specific [place] (1.000-1.030) Urine Protein (Negative) Urine Glucose (UA) (Negative) Urine Ketones (Negative) Urine Blood (Negative) Urine Nitrite (Negative) Urine Bilirubin (Negative) Urine Urobilinogen (0.2-1.0) Ur Leukocyte Esterase (Negative) Urine RBC (0-2) Urine WBC (0-5) Ur Squamous Epith Cells (None-Few) Urine Bacteria (None) SARS-CoV-2 Ag (Rapid) negative (Negative) 06/23/22 Range/Units 22:30 WBC (4.50-11.00) K/uL RBC (4.30-5.90) m/uL Hgb (13.5-17.5) gm/dL Hct (37.0-53.0) % MCV (80-100) fL MCH (26-34) pg MCHC (32-36) gm/dL RDW Coeff of Won (11.5-15.5) % Plt Count (140-440) K/uL Neut % (Auto) (42.0-72.0) % Lymph % (Auto) (20-44) % [place] % (Auto) (0.0-11.0) % Eos % (Auto) (0.0-7.0) % Baso % (Auto) (0.0-3.0) % Neut # (Auto) (1.7-7.0) K/uL Lymph # (Auto) (0.90-2.90) K/uL [place] # (Auto) (0.00-0.90) K/UL Eos # (Auto) (0.00-0.50) K/uL Baso # (Auto) (0.00-0.30) K/uL Sodium (135-149) mmol/L Potassium (3.6-5.1) mmol/L Chloride (96-114) mmol/L Carbon Dioxide (20-32) mmol/L BUN (7-30) mg/dL Creatinine (0.5-1.5) mg/dL Estimated Creat Clear Estimated GFR ml/min Glucose (60-115) mg/dL Calcium (8.4-10.6) mg/dL Urine Color Yellow (Yellow) Urine Appearance Clear (Clear) Urine pH 5.5 (5.0-8.5) Ur Specific [place] 1.020 (1.000-1.030) Urine Protein 2+ A (Negative) Urine Glucose (UA) Negative (Negative) Urine Ketones Trace A (Negative) Urine Blood Negative (Negative) Urine Nitrite Negative (Negative) Urine Bilirubin Negative (Negative) Urine Urobilinogen 0.2 (0.2-1.0) Ur Leukocyte Esterase 1+ A (Negative) Urine RBC 0-2 (0-2) Urine WBC 2-5 (0-5) Ur Squamous Epith Cells Few (None-Few) Urine Bacteria Few A (None) SARS-CoV-2 Ag (Rapid) (Negative) ECG Data Attestation: I personally reviewed and interpreted this ECG as follows: Interpretation: EKG showed normal sinus rhythm, there is no evidence of the acute peak T- waves, there is some flattening noted laterally, which may be normal for him. Discharge Plan Discharge Patient Disposition: Admitted As Inpatient Condition: Stable Prescriptions: No Action carvedilol 3.125 mg tablet 3.125 mg PO BID Label Comments: TAKE 1 TABLET BY MOUTH TWICE DAILY gabapentin 300 mg capsule 300 mg PO HS Label Comments: TAKE 1 CAPSULE BY MOUTH EVERY NIGHT AT BEDTIME glipizide-metformin 5-500 mg tablet 1 tab PO BID Label Comments: TAKE 2 TABLETS BY MOUTH TWICE DAILY tamsulosin 0.4 mg capsule 0.4 mg PO DAILY Label Comments: TAKE 1 CAPSULE BY MOUTH DAILY cholecalciferol (vitamin D3) 125 mcg (5,000 unit) capsule 5,000 unit PO DAILY Label Comments: TAKE 1 CAPSULE BY MOUTH DAILY atorvastatin 80 mg tablet 80 mg PO HS Label Comments: TAKE 1 TABLET BY MOUTH EVERY NIGHT AT BEDTIME aspirin [Aspirin Childrens] 81 mg tablet,chewable 81 mg PO DAILY sennosides-docusate sodium [Stool Softener-Laxative] 8.6-50 mg Tablet 2 tab-cap PO DAILY Qty: 100 0RF torsemide 100 mg tablet 100 mg PO BID Qty: 60 0RF Label Comments: TAKE 1/2 TABLET BY MOUTH TWICE DAILY ferrous sulfate 325 mg (65 mg iron) Tablet 325 mg PO DAILYWM Qty: 100 0RF lisinopril 5 mg tablet 2.5 mg PO DAILY Qty: 30 0RF Label Comments: TAKE 1 TABLET BY MOUTH DAILY Follow Up/Referrals: Dayanara Darling MD [Primary Care Provider] -
[2022-06-23 22:59] VITALS: BP 130/80; PULSE 73; RESP 18; O2SAT 96
[2022-06-23 23:14] LABS: Hemoglobin A1C* 6.93 % (0-5.6)
[2022-06-23 23:24] VITALS: BP 130/80; PULSE 73; RESP 18; O2SAT 96; O2SAT 99; BMI 35.5
[2022-06-24] VITALS (15 sets, daily range): BP systolic 89–117; BP diastolic 47–72; PULSE 55–77; RESP 16–20; TEMP 36.7–36.9; O2SAT 93–99
[2022-06-24] MEDS: 0.9 % SODIUM CHLORIDE 1000 ml 1,000 ML IV (00:02)
[2022-06-24] MEDS: 0.9 % SODIUM CHLORIDE 1000 ml 1,000 ML 150 ML IV ×3 (01:15→20:14)
[2022-06-24 02:11] LABS: Potassium* 5.2 mmol/L (3.6-5.1)
[2022-06-24 07:05] LABS: HCO3 VBG 26 mmol/L (21-28); Ionized Calcium* 1.16 mmol/L (1.11-1.30); Lactate* 0.7 mmol/L (0.5-1.9); PCO2 VBG 47 mmHG (40-50); PO2 VBG 49.9 mmHG (25-47); pH VBG 7.343 (7.32-7.43)
[2022-06-24 07:28] LABS: Chloride* 105 mmol/L (96-114); Potassium* 5.3 mmol/L (3.6-5.1); Sodium* 137 mmol/L (135-149)
[2022-06-24 07:31] LABS: Blood Urea Nitrogen* 90 mg/dL (7-30); Carbon Dioxide* 24 mmol/L (20-32); Creatinine* 5.3 mg/dL (0.5-1.5); Est. Creatinine Clearance* 12.04; Estimated Glomerular Filt Rate 11 ml/min; Glucose* 86 mg/dL (60-115)
[2022-06-24 07:32] LABS: Calcium* 8.6 mg/dL (8.4-10.6); Magnesium* 1.5 mg/dL (1.5-2.6); Phosphorus* 4.3 mg/dL (2.5-4.5)
--- NOTE | 2022-06-24 07:33 | PC.NURSE ---
Status [id number] Pt admitted from ER into 278 at 2300 for JOSELIN. Pt alert and oriented. Denies pain. VSS on room air. Pt requested 2L of supplemental oxygen overnight. Continuous pulse oximetry ordered. Hyperkalemic at 5.9 upon admission, recheck 5.2. Received 1L NS bolus, now NS infusing at 150mL/hr. Telemetry monitoring, normal sinus rhythm. Glucose upon arrival, 103. Up with stand by. Pt observed resting between cares.
[2022-06-24 07:44] LABS: Troponin I* 0.04 ng/mL (0.01-0.04)
[2022-06-24 07:51] LABS: NT Pro B Type NatriureticPept* 3640 pg/mL
--- NOTE | 2022-06-24 09:29 | PM.IMPN1 ---
Progress Note: A&P Assessment and plan (1) Mobitz (type) II atrioventricular block: Problem details: - current HR in the 50s, patient asymptomatic - reviewed EKG with Dr. Nguyen, [facility] at [facility] notes that rhythm more consistent with Mobitz 1, and anticipates this will improve as potassium improves - hold carvedilol, treat hyperkalemia, moved to CCU, continue telemetry - attempt transfer given arrhythmia in addition to acute kidney injury and hyperkalemia; patient and family aware of limited bed status throughout the state Status: Acute (2) JOSELIN (acute kidney injury): Problem details: - likely iatrogenic (Torsemide, Metformin, Lisinopril). Torsemide was recently increased, and patient has had weight loss, so likely also has a prerenal component - he is receiving low-dose IV fluids given history of CHF, following labs closely Status: Acute (3) Hyperkalemia: Problem details: - holding lisinopril - treating with insulin, glucose, calcium gluconate. Unfortunately, our pharmacy does not carry novel cation exchangers; will treat with Kayexalate - continue close monitoring of electrolytes Status: Acute (4) Systolic heart failure secondary to coronary artery disease: Problem details: -on room air. No current symptoms of exacerbation of heart failure. Last TTE 05/14/22 Final Impressions: 1. Technically limited exam. 2. Moderately increased LV size, normal wall thickness, mildly reduced global systolic function with an estimated EF of 40 - 45%. 3. Right ventricular cavity size is normal, global systolic RV function is normal. 4. Mildly enlarged left atrium. 5. The aortic valve is sclerotic and trileaflet, no stenosis and no regurgitation. 6. The mitral valve is sclerotic, mild mitral regurgitation. Status: Acute (5) Kidney disease, chronic, stage III (GFR 30-59 ml/min): Problem details: - with JOSELIN Status: Acute (6) IDDM (insulin dependent diabetes mellitus): Problem details: - A1C <7 on admission - SSI/Accuchecks - holding his glipizide-metformin secondary to JOSELIN Status: Acute (7) Essential hypertension: Problem details: - holding lisinopril and Coreg, BP stable Status: Acute (8) Anemia: Problem details: - previous outpatient hemoglobin 12.6 in 03/2021. Iron studies show iron deficiency. No obvious source of bleeding. Continue to trend. Stools are guaiac negative. Replace iron. Outpatient evaluation for iron deficiency anemia Status: Acute Plan - per above - renally dosed Lovenox - son and daughter in law updated at bedside, questions answered Subjective Date Seen: 06/24/22 Interval history: Franklin was admitted overnight for acute hyperkalemia in the setting of acute kidney injury. He has no concerns for the hospitalist team this morning. His nurse noted that his rhythm changed early this morning; she obtained an EKG that was concerning for Mobitz 1 versus Mobitz 2 type block. Heart rate in the 50s, patient asymptomatic. Creatinine and potassium remain high, tolerating treatments for these. Exam Narrative: Exam Narrative: GEN: Alert and oriented, answering questions appropriately HEENT: Normal external ears, EOMIs bilaterally, + xanthelasma right eye CV: RRR, No concerning murmurs, rubs, or gallops R: Air movement adequate, no concerning rales or rhonchi, no wheezing Ext: wwp, no lower extremity edema Skin: No concerning skin lesions or rashes on exposed skin Neuro: Nonfocal Psych: Appropriate Const: Vital Signs, click to edit/add: Vital Signs - 24 hr 06/23/22 20:52 06/23/22 21:06 06/23/22 22:59 Temperature 97.4 F L Pulse Rate Pulse Rate [Bilate ral] 61 Pulse Rate [Pulse Oximeter] 73 Respiratory Rate 18 18 Blood Pressure [Le ft Arm] 130/80 Blood Pressure [Le ft Upper Arm] 125/57 L Pulse Oximetry 94 96 Oxygen Delivery Me thod Room Air Room Air Oxygen Flow Rate 06/23/22 23:24 06/24/22 00:05 06/23/22 23:24 Temperature Pulse Rate Pulse Rate [Bilate ral] Pulse Rate [Pulse Oximeter] 73 Respiratory Rate 18 18 Blood Pressure [Le ft Arm] 130/80 Blood Pressure [Le ft Upper Arm] Pulse Oximetry 96 99 99 Oxygen Delivery Me thod Room Air Nasal Cannula Oxygen Flow Rate 2 06/24/22 00:30 06/24/22 04:51 Temperature 98.4 F Pulse Rate 77 Pulse Rate [Bilate ral] Pulse Rate [Pulse Oximeter] 55 L Respiratory Rate 18 Blood Pressure [Le ft Arm] 109/65 Blood Pressure [Le ft Upper Arm] Pulse Oximetry 99 Oxygen Delivery Me thod Nasal Cannula Oxygen Flow Rate 2 Labs Labs: Laboratory Results - last 24 hr 06/23/22 06/23/22 06/23/22 21:25 21:25 21:25 WBC 11.83 H RBC 3.79 L Hgb 11.0 L Hct 34.1 L MCV 90 MCH 29 MCHC 32 RDW Coeff of Won 13.2 Plt Count 295 Neut % (Auto) 71.9 Lymph % (Auto) 14.4 L [place] % (Auto) 11.3 H Eos % (Auto) 1.9 Baso % (Auto) 0.2 Neut # (Auto) 8.50 H Lymph # (Auto) 1.70 [place] # (Auto) 1.30 H Eos # (Auto) 0.20 Baso # (Auto) 0.00 VBG pH VBG pCO2 VBG pO2 VBG HCO3 Sodium 137 Potassium 5.9 H Chloride 99 Carbon Dioxide 27 BUN 88 H Creatinine 5.6 H Estimated Creat Clear 11.39 Estimated GFR 10 Glucose 130 H Hemoglobin A1c 6.93 H Lactate Calcium 9.5 Ionized Calcium Mario Phosphorus Magnesium Troponin I NT-Pro-B Natriuret Pep Urine Color Urine Appearance Urine pH Ur Specific [place] Urine Protein Urine Glucose (UA) Urine Ketones Urine Blood Urine Nitrite Urine Bilirubin Urine Urobilinogen Ur Leukocyte Esterase Urine RBC Urine WBC Ur Squamous Epith Cells Urine Bacteria SARS-CoV-2 Ag (Rapid) 06/23/22 06/23/22 06/24/22 22:01 22:30 01:35 WBC RBC Hgb Hct MCV MCH MCHC RDW Coeff of Won Plt Count Neut % (Auto) Lymph % (Auto) [place] % (Auto) Eos % (Auto) Baso % (Auto) Neut # (Auto) Lymph # (Auto) [place] # (Auto) Eos # (Auto) Baso # (Auto) VBG pH VBG pCO2 VBG pO2 VBG HCO3 Sodium Potassium 5.2 H Chloride Carbon Dioxide BUN Creatinine Estimated Creat Clear Estimated GFR Glucose Hemoglobin A1c Lactate Calcium Ionized Calcium Mario Phosphorus Magnesium Troponin I NT-Pro-B Natriuret Pep Urine Color Yellow Urine Appearance Clear Urine pH 5.5 Ur Specific [place] 1.020 Urine Protein 2+ A Urine Glucose (UA) Negative Urine Ketones Trace A Urine Blood Negative Urine Nitrite Negative Urine Bilirubin Negative Urine Urobilinogen 0.2 Ur Leukocyte Esterase 1+ A Urine RBC 0-2 Urine WBC 2-5 Ur Squamous Epith Cells Few Urine Bacteria Few A SARS-CoV-2 Ag (Rapid) negative 06/24/22 06/24/22 06:50 06:50 WBC RBC Hgb Hct MCV MCH MCHC RDW Coeff of Won Plt Count Neut % (Auto) Lymph % (Auto) [place] % (Auto) Eos % (Auto) Baso % (Auto) Neut # (Auto) Lymph # (Auto) [place] # (Auto) Eos # (Auto) Baso # (Auto) VBG pH 7.343 VBG pCO2 47 VBG pO2 49.9 H VBG HCO3 26 Sodium 137 Potassium 5.3 H Chloride 105 Carbon Dioxide 24 BUN 90 H Creatinine 5.3 H Estimated Creat Clear 12.04 Estimated GFR 11 Glucose 86 Hemoglobin A1c Lactate 0.7 Calcium 8.6 Ionized Calcium Mario 1.16 Phosphorus 4.3 Magnesium 1.5 Troponin I 0.04 NT-Pro-B Natriuret Pep 3640 Urine Color Urine Appearance Urine pH Ur Specific [place] Urine Protein Urine Glucose (UA) Urine Ketones Urine Blood Urine Nitrite Urine Bilirubin Urine Urobilinogen Ur Leukocyte Esterase Urine RBC Urine WBC Ur Squamous Epith Cells Urine Bacteria SARS-CoV-2 Ag (Rapid)
[2022-06-24] MEDS: ASPIRIN 81 MG TAB.CHEW PO (10:03)
[2022-06-24] MEDS: FERROUS SULFATE 325 MG TABLET PO (10:03)
[2022-06-24] MEDS: SODIUM CHLORIDE 0.9 % (FLUSH) 10 ML SYRINGE 5 ML IVF ×2 (10:09→21:18)
[2022-06-24] MEDS: CALCIUM GLUC 1,000MG/50 ML 1,000 MG/50 ML BAG 100 MG IVPB ×2 (10:35→23:15)
--- NOTE | 2022-06-24 11:24 | PC.NURSE ---
Nursing Care Hours: [id number] Pt this shift up independently in room. Frequent loose stool, lasting years per pt. [employer] has not observed output. VSS. Change in Tele strip noted compared to last reading from NSR to NSR with 2 degree block. MD notified, EKG ordered and read Mobitz 1. No c/o chest pain, SOB, or feeling faint. Calcium gluconate IV ordered and infused. 1L O2 NC per pt request and comfort. Sats above 93%. No edema in lower extremities noted, LS clear but diminished throughout. Pt transferring to CCU status, new nurse taking over, report given.
[2022-06-24 13:06] LABS: Chloride* 103 mmol/L (96-114); Sodium* 135 mmol/L (135-149)
[2022-06-24 13:09] LABS: Blood Urea Nitrogen* 90 mg/dL (7-30); Calcium* 8.6 mg/dL (8.4-10.6); Carbon Dioxide* 23 mmol/L (20-32); Creatinine* 5.2 mg/dL (0.5-1.5); Est. Creatinine Clearance* 12.27; Estimated Glomerular Filt Rate 11 ml/min; Glucose* 169 mg/dL (60-115)
[2022-06-24 13:21] LABS: Potassium* 6.3 mmol/L (3.6-5.1)
[2022-06-24] MEDS: 10 % DEXTROSE 500 ML 500 ML 75 ML IV (13:42)
[2022-06-24] MEDS: DEXTROSE 50 % SYRINGE IVP ×2 (14:01→21:10)
--- NOTE | 2022-06-24 15:28 | PC.NURSE ---
end of shift. pt was made unit and I took over care. VSS tele shows 2nd degree HB Mobitz 1. ekg and tele all confirm.? No c/o chest pain, SOB o2 on @ 1L nc. 2nd SL was started,. pt like to joke and tease nursing. he is eating, drinking and voiding. Calcium gluconate IV, D10 D25 and insulin was given Blood sugars q1 hour per md order. ? No edema in lower extremities, LS clear but diminished throughout. he is up with 1 assist,. moved to CCU4
--- NOTE | 2022-06-24 18:20 | PC.NURSE ---
Shift Summary 15-19: Patient pleasant and cooperative, up with SBA. Continues to have o2 @ 1L/NC. Denies pain or SOB. Tele has shown Wenckebach throughout shift.
[2022-06-24 18:37] LABS: Chloride* 102 mmol/L (96-114); Sodium* 132 mmol/L (135-149)
[2022-06-24 18:40] LABS: Blood Urea Nitrogen* 88 mg/dL (7-30); Carbon Dioxide* 21 mmol/L (20-32); Creatinine* 5.1 mg/dL (0.5-1.5); Est. Creatinine Clearance* 12.51; Estimated Glomerular Filt Rate 12 ml/min
[2022-06-24 18:41] LABS: Calcium* 8.8 mg/dL (8.4-10.6); Glucose* 287 mg/dL (60-115)
[2022-06-24] MEDS: ALBUTEROL SULFATE 2.5 MG/3 ML VIAL.NEB 10 MG NEB (20:14)
[2022-06-24] MEDS: ATORVASTATIN CALCIUM 40 MG TABLET 80 MG PO (21:26)
[2022-06-24] MEDS: GABAPENTIN 300 MG CAPSULE PO (21:26)
--- NOTE | 2022-06-24 22:10 | PM.EN ---
Chart Event Note Date Seen: 06/24/22 Chart Event Note: reviewed BMP @1813: Sodium is 132, potassium is down to 6.0 from 6.3, BUN 88, creatinine 5.1 I ordered 10mg albuterol by nebulizer in 4 cc saline with a 10 unit regular insulin IV followed by 25g dextrose push. calcium gluconate as well recheck @1045pm
[2022-06-24 23:09] LABS: Chloride* 104 mmol/L (96-114)
[2022-06-24 23:10] LABS: Potassium* 4.6 mmol/L (3.6-5.1); Sodium* 134 mmol/L (135-149)
[2022-06-24 23:12] LABS: Creatinine* 4.7 mg/dL (0.5-1.5); Est. Creatinine Clearance* 13.57; Estimated Glomerular Filt Rate 13 ml/min
[2022-06-24 23:13] LABS: Blood Urea Nitrogen* 88 mg/dL (7-30); Calcium* 8.7 mg/dL (8.4-10.6); Carbon Dioxide* 24 mmol/L (20-32); Glucose* 134 mg/dL (60-115)
[2022-06-24] MEDS: 5 % DEXTROSE/0.9% SOD CHLORIDE 1,000 ML 150 ML IV (23:56)
[2022-06-25] VITALS (10 sets, daily range): BP systolic 93–146; BP diastolic 58–92; PULSE 67–84; RESP 16–20; TEMP 36.6–37.1; O2SAT 95–97
--- NOTE | 2022-06-25 04:58 | PC.NURSE ---
[id number] Pt slept during shift, denies any pain, chest discomfort, lightheaded/dizziness, headache at beginning of shift, has since resolved. At beginning of shift HR converted back and forth between NSR and Mobitz 1 (Chau), pt asymptomatic- HR currently in NSR. Pt on 1 LPM MT.
[2022-06-25] MEDS: SODIUM CHLORIDE 0.9 % (FLUSH) 10 ML SYRINGE 5 ML IVF ×3 (07:03→20:57)
[2022-06-25 07:16] LABS: Basophils Absolute Auto 0.02 K/uL (0.00-0.30); Basophils Percent Auto 0.3 % (0.0-3.0); Eosinophils Absolute Auto 0.14 K/uL (0.00-0.50); Eosinophils Percent Auto 2.1 % (0.0-7.0); Hemoglobin* 9.1 gm/dL (13.5-17.5); Immature Granulocytes Abs Auto 0.01 K/uL (0.00-0.30); Immature Granulocytes Pct Auto 0.1 %; Lymphocytes Absolute Auto 1.39 K/uL (0.90-2.90); Lymphocytes Percent Auto 20.6 % (20-44); Mean Corpuscular HGB Conc 33 gm/dL (32-36); Mean Corpuscular Hemoglobin 29 pg (26-34); Mean Corpuscular Volume 91 fL (80-100); Neutrophils Absolute Auto 4.37 K/uL (1.7-7.0); Neutrophils Percent Auto 64.9 % (42.0-72.0); Platelet Count* 216 K/uL (140-440); RDW Coefficient of Variation % 13.1 % (11.5-15.5); Red Blood Count 3.09 m/uL (4.30-5.90); White Blood Count* 6.74 K/uL (4.50-11.00)
[2022-06-25 07:18] LABS: Slide Review Reflex No
[2022-06-25 07:27] LABS: Chloride* 105 mmol/L (96-114); Potassium* 4.9 mmol/L (3.6-5.1); Sodium* 136 mmol/L (135-149)
[2022-06-25 07:29] LABS: Creatinine* 4.4 mg/dL (0.5-1.5); Estimated Glomerular Filt Rate 14 ml/min
[2022-06-25 07:30] LABS: Blood Urea Nitrogen* 81 mg/dL (7-30); Calcium* 8.6 mg/dL (8.4-10.6); Carbon Dioxide* 22 mmol/L (20-32); Glucose* 207 mg/dL (60-115)
[2022-06-25 07:45] LABS: NT Pro B Type NatriureticPept* 3880 pg/mL
[2022-06-25] MEDS: ASPIRIN 81 MG TAB.CHEW PO (08:52)
[2022-06-25] MEDS: FERROUS SULFATE 325 MG TABLET PO (08:52)
--- NOTE | 2022-06-25 10:31 | NUTR.NU ---
MARIE with MD consult related to CHF. RDN visited with patient whom agreed to diet education without designated caregiver present. He reported he would share educational materials with family and designated caregiver. Patient lives wtih son and [id number] who cook low sodium meals for patient. He reports he has received diet education before related to CHF. He has been making small changes at home such as limiting high sodium foods (pickles, crackers) and buying canned/boxed foods that are low sodium/no salt added. Nutrition education provided on a low sodium diet related to congestive heart failure. Verbal and written information provided. Recommend limiting sodium to 2,000 mg per day. Discussed foods recommended and to avoid. Handouts provided from [facility] [place] on heart failure nutrition therapy, sodium content of foods, heart healthy label reading tips, sodium-free flavoring tips and heart healthy cooking and shopping tips. Patient verbalized understanding. RDN's contact information was provided and patient was encouraged to call with questions.
--- NOTE | 2022-06-25 10:34 | RESP.RT ---
pt not requiring oxygen at this time. Per nursing pt reports that he does not care for his home CPAP mask, and would prefer a different style. Pt will need to speak with his DME company to arrange this.
[2022-06-25 13:47] LABS: Chloride* 105 mmol/L (96-114)
[2022-06-25 13:48] LABS: Potassium* 5.6 mmol/L (3.6-5.1); Sodium* 135 mmol/L (135-149)
[2022-06-25 13:50] LABS: Creatinine* 3.7 mg/dL (0.5-1.5); Est. Creatinine Clearance* 17.24; Estimated Glomerular Filt Rate 17 ml/min
[2022-06-25 13:51] LABS: Blood Urea Nitrogen* 76 mg/dL (7-30); Calcium* 8.9 mg/dL (8.4-10.6); Carbon Dioxide* 20 mmol/L (20-32); Glucose* 275 mg/dL (60-115)
--- NOTE | 2022-06-25 15:43 | P.IMPN_ITS ---
Progress Note: A&P Assessment and plan (1) JOSELIN (acute kidney injury): Problem details: - likely iatrogenic (Torsemide, Metformin, Lisinopril). Torsemide was recently increased, and patient has had weight loss, so likely also has a prerenal component - he is receiving low-dose IV fluids, following labs closely Status: Acute (2) Hyperkalemia: Problem details: - holding lisinopril - treating with insulin, glucose, calcium gluconate, albuterol - received Kayexalate x1 06/24 - continue close monitoring of electrolytes Status: Acute (3) Systolic heart failure secondary to coronary artery disease: Problem details: -on room air. No current symptoms of exacerbation of heart failure. TTE 06/24: Final Impressions: 1. Technically limited exam. 2. Not well visualized LV size, not well visualized wall thickness, normal global systolic function with an estimated EF of 55 - 60%. 3. Right ventricular cavity size is not well visualized, global systolic RV function is not well visualized. 4. The aortic valve is sclerotic, no stenosis and trivial regurgitation. 5. The mitral valve is tethered, mild mitral regurgitation. 6. Tricuspid valve is not well visualized. 7. The inferior vena cava is dilated, respiratory size variation less than 50%, consistent with elevated right atrial pressure. 8. Moderately increased estimated pulmonary pressures by tricuspid regurgitation velocity and right atrial pressure (39 mmHg plus RAP). 9. No pericardial effusion. Status: Acute (4) Mobitz (type) II atrioventricular block: Problem details: - noted on 06/24 EKG, improved as potassium was lowered - reviewed EKG with Dr. Nguyen, Pc Support Specialist at [facility] (06/24), notes that rhythm more consistent with Mobitz 1, and anticipated this will improve as potassium improves - hold carvedilol, treat hyperkalemia, moved to CCU, continue telemetry - attempt transfer given arrhythmia in addition to acute kidney injury and hyperkalemia; patient and family aware of limited bed status throughout the state Status: Acute (5) Kidney disease, chronic, stage III (GFR 30-59 ml/min): Problem details: - with JOSELIN Status: Acute (6) IDDM (insulin dependent diabetes mellitus): Problem details: - A1C <7 on admission - SSI/Accuchecks - holding his glipizide-metformin secondary to JOSELIN Status: Acute (7) Essential hypertension: Problem details: - holding lisinopril and Coreg, BP stable Status: Acute (8) Anemia: Problem details: - previous outpatient hemoglobin 12.6 in 03/2021. Iron studies show iron deficiency. No obvious source of bleeding. Continue to trend. Stools are guaiac negative. Replace iron. Outpatient evaluation for iron deficiency anemia Status: Acute Plan - per above - renally dosed Lovenox - continue telemetry - continue to follow BMP closely - daughter in law Nevin updated by phone, questions answered Subjective Date Seen: 06/25/22 Interval history: Franklin feels fine this morning, has no concerns for hospitalist team. He received albuterol, insulin and glucose, and calcium gluconate again overnight for hyperkalemia. His potassium is within normal limits this morning, creatinine continues to improve as well. He is amenable to meeting with Nutrition team today. This morning, his EKG reveals a 1st degree AV block, no further Mobitz abnormalities. TTE obtained 06/24 Final Impressions: 1. Technically limited exam. 2. Not well visualized LV size, not well visualized wall thickness, normal global systolic function with an estimated EF of 55 - 60%. 3. Right ventricular cavity size is not well visualized, global systolic RV function is not well visualized. 4. The aortic valve is sclerotic, no stenosis and trivial regurgitation. 5. The mitral valve is tethered, mild mitral regurgitation. 6. Tricuspid valve is not well visualized. 7. The inferior vena cava is dilated, respiratory size variation less than 50%, consistent with elevated right atrial pressure. 8. Moderately increased estimated pulmonary pressures by tricuspid regurgitation velocity and right atrial pressure (39 mmHg plus RAP). 9. No pericardial effusion. Exam Narrative: Exam Narrative: GEN: Alert and oriented, ordering breakfast when I see him this morning HEENT: Normal external ears, EOMIs bilaterally, no scleral icterus CV: RRR, No concerning murmurs, rubs, or gallops R: LCTA bilaterally without concerning wheezing, rales, or rhonchi Ext: wwp, no concerning edema Skin: Skin changes of BLE c/w PVD Neuro: Nonfocal Psych: Appropriate Const: Vital Signs, click to edit/add: Vital Signs - 24 hr 06/24/22 15:54 06/24/22 19:00 06/24/22 21:53 Temperature 98.2 F Pulse Rate 72 72 Pulse Rate [Pulse Oximeter] 62 Respiratory Rate 16 Blood Pressure [Le ft Arm] 117/63 Pulse Oximetry 96 Oxygen Delivery Me thod Nasal Cannula Oxygen Flow Rate 1 06/24/22 18:57 06/24/22 22:49 06/24/22 22:49 Temperature Pulse Rate 58 L Pulse Rate [Pulse Oximeter] 62 Respiratory Rate Blood Pressure [Le ft Arm] Pulse Oximetry 93 Oxygen Delivery Me thod Oxygen Flow Rate 06/24/22 23:09 06/24/22 23:00 06/25/22 03:00 Temperature 98.1 F 97.8 F Pulse Rate 70 Pulse Rate [Pulse Oximeter] 76 67 Respiratory Rate 20 16 Blood Pressure [Le ft Arm] 89/47 L 93/58 L Pulse Oximetry 95 97 Oxygen Delivery Me thod Nasal Cannula Nasal Cannula Oxygen Flow Rate 1 1 06/25/22 07:30 06/25/22 07:30 06/25/22 07:30 Temperature 98.4 F Pulse Rate Pulse Rate [Pulse Oximeter] 69 69 Respiratory Rate 16 Blood Pressure [Le ft Arm] 146/81 H Pulse Oximetry 97 97 Oxygen Delivery Me thod Nasal Cannula Oxygen Flow Rate 1 06/25/22 12:50 06/25/22 09:06 06/25/22 14:54 Temperature 98.7 F Pulse Rate 70 Pulse Rate [Pulse Oximeter] 76 Respiratory Rate 20 Blood Pressure [Le ft Arm] 137/76 Pulse Oximetry 96 97 Oxygen Delivery Me thod Room Air Oxygen Flow Rate Labs Labs: Laboratory Results - last 24 hr 06/24/22 06/24/22 06/25/22 18:13 22:52 06:28 WBC 6.74 RBC 3.09 L Hgb 9.1 L Hct 28.0 L MCV 91 MCH 29 MCHC 33 RDW Coeff of Won 13.1 Plt Count 216 Neut % (Auto) 64.9 Lymph % (Auto) 20.6 [place] % (Auto) 12.0 H Eos % (Auto) 2.1 Baso % (Auto) 0.3 Neut # (Auto) 4.37 Lymph # (Auto) 1.39 [place] # (Auto) 0.80 Eos # (Auto) 0.14 Baso # (Auto) 0.02 Sodium 132 L 134 L Potassium 6.0 H 4.6 Chloride 102 104 Carbon Dioxide 21 24 BUN 88 H 88 H Creatinine 5.1 H 4.7 H Estimated Creat Clear 12.51 13.57 Estimated GFR 12 13 Glucose 287 H 134 H Calcium 8.8 8.7 NT-Pro-B Natriuret Pep 06/25/22 06/25/22 06:28 13:07 WBC RBC Hgb Hct MCV MCH MCHC RDW Coeff of Won Plt Count Neut % (Auto) Lymph % (Auto) [place] % (Auto) Eos % (Auto) Baso % (Auto) Neut # (Auto) Lymph # (Auto) [place] # (Auto) Eos # (Auto) Baso # (Auto) Sodium 136 135 Potassium 4.9 5.6 H Chloride 105 105 Carbon Dioxide 22 20 BUN 81 H 76 H Creatinine 4.4 H 3.7 H Estimated Creat Clear 14.50 17.24 Estimated GFR 14 17 Glucose 207 H 275 H Calcium 8.6 8.9 NT-Pro-B Natriuret Pep 3880
[2022-06-25] MEDS: DEXTROSE 50 % SYRINGE IVP (16:05)
[2022-06-25] MEDS: ALBUTEROL SULFATE 2.5 MG/3 ML VIAL.NEB NEB (16:09)
[2022-06-25] MEDS: 0.9 % SODIUM CHLORIDE 1000 ml 1,000 ML 75 ML IV (16:10)
--- NOTE | 2022-06-25 18:23 | PC.NURSE ---
shift note: vss stable. pt afeb. pt up sba to bathroom. pt states he has chronic back pain. pt states pain mid shoulder. Pt denies c.p or pressure. pt denies sob with activity. sats 92-97% RA. LS dim. IV patent to FA. beebe [phone]
[2022-06-25 18:36] LABS: Chloride* 106 mmol/L (96-114); Sodium* 137 mmol/L (135-149)
[2022-06-25 18:39] LABS: Blood Urea Nitrogen* 73 mg/dL (7-30); Carbon Dioxide* 23 mmol/L (20-32); Creatinine* 3.5 mg/dL (0.5-1.5); Est. Creatinine Clearance* 18.23; Estimated Glomerular Filt Rate 18 ml/min; Glucose* 236 mg/dL (60-115)
[2022-06-25 18:40] LABS: Calcium* 9.2 mg/dL (8.4-10.6)
[2022-06-25] MEDS: GABAPENTIN 300 MG CAPSULE PO (20:57)
[2022-06-25] MEDS: ATORVASTATIN CALCIUM 40 MG TABLET 80 MG PO (20:57)
[2022-06-26] VITALS (9 sets, daily range): BP systolic 126–143; BP diastolic 67–82; PULSE 61–92; RESP 16–20; TEMP 36.5–37; O2SAT 93–96
[2022-06-26] MEDS: 0.9 % SODIUM CHLORIDE 1000 ml 1,000 ML 75 ML IV ×2 (05:14→17:02)
--- NOTE | 2022-06-26 07:34 | PC.NURSE ---
[id number]: patient up SBA, 1L NC overnight with sats maintained above 90 while asleep, ambulates with steady gait. tele shows 1st degree AV block .
[2022-06-26 07:51] LABS: Basophils Absolute Auto 0.03 K/uL (0.00-0.30); Basophils Percent Auto 0.4 % (0.0-3.0); Eosinophils Absolute Auto 0.28 K/uL (0.00-0.50); Eosinophils Percent Auto 3.6 % (0.0-7.0); Hematocrit 28.3 % (37.0-53.0); Hemoglobin* 9.1 gm/dL (13.5-17.5); Lymphocytes Percent Auto 15.6 % (20-44); Mean Corpuscular HGB Conc 32 gm/dL (32-36); Mean Corpuscular Hemoglobin 29 pg (26-34); Mean Corpuscular Volume 90 fL (80-100); Monocytes Percent Auto 9.4 % (0.0-11.0); Neutrophils Absolute Auto 5.59 K/uL (1.7-7.0); Platelet Count* 220 K/uL (140-440); RDW Coefficient of Variation % 13.1 % (11.5-15.5); Red Blood Count 3.16 m/uL (4.30-5.90); White Blood Count* 7.87 K/uL (4.50-11.00)
[2022-06-26 07:58] LABS: Slide Review Reflex No
[2022-06-26 08:00] LABS: Ionized Calcium* 1.18 mmol/L (1.11-1.30)
[2022-06-26 08:13] LABS: Chloride* 110 mmol/L (96-114)
[2022-06-26 08:14] LABS: Potassium* 5.2 mmol/L (3.6-5.1); Sodium* 139 mmol/L (135-149)
[2022-06-26 08:16] LABS: Carbon Dioxide* 23 mmol/L (20-32); Creatinine* 2.7 mg/dL (0.5-1.5); Est. Creatinine Clearance* 23.63; Estimated Glomerular Filt Rate 25 ml/min
[2022-06-26 08:17] LABS: Blood Urea Nitrogen* 60 mg/dL (7-30); Calcium* 8.6 mg/dL (8.4-10.6); Glucose* 171 mg/dL (60-115); Magnesium* 1.4 mg/dL (1.5-2.6); Phosphorus* 3.9 mg/dL (2.5-4.5)
[2022-06-26] MEDS: ASPIRIN 81 MG TAB.CHEW PO (09:04)
[2022-06-26] MEDS: FERROUS SULFATE 325 MG TABLET PO (09:04)
--- NOTE | 2022-06-26 12:03 | RESP.RT ---
Patient sitting up in chair on room air, SaO2 94%. Patient states that he does not care for his home CPAP mask, and would prefer a different style. Explained to Pt he will need to speak with his DME company to arrange this. Patient has Home Oxygen and uses it intermittently when he feels he needs it. Encouraged patient to wear his Oxgen more and he will be more active, and to call his DME to get a mask fitting he would be more compliant with.
[2022-06-26 12:55] LABS: Chloride* 107 mmol/L (96-114); Potassium* 5.5 mmol/L (3.6-5.1); Sodium* 136 mmol/L (135-149)
[2022-06-26 12:57] LABS: Creatinine* 2.5 mg/dL (0.5-1.5); Est. Creatinine Clearance* 25.52; Estimated Glomerular Filt Rate 27 ml/min
[2022-06-26 12:58] LABS: Blood Urea Nitrogen* 56 mg/dL (7-30); Carbon Dioxide* 22 mmol/L (20-32); Glucose* 282 mg/dL (60-115)
--- NOTE | 2022-06-26 14:47 | PC.NURSE ---
Assumed care of this pt at 1300 from Emerita Greenberg RN. Pt moved from CCU-4 to room 278. Please see VS. No prn meds given. BG 285 covered with 3 units of SS insulin. 635 PO and 900cc out. Care note on renal diet provided to pt. Continue plan of care. Report to Kary Mullen RN.
--- NOTE | 2022-06-26 17:29 | PM.IMPN1 ---
Progress Note: A&P Assessment and plan (1) JOSELIN (acute kidney injury): Problem details: - likely iatrogenic (Torsemide, Metformin, Lisinopril). Torsemide was recently increased, and patient has had weight loss, so likely also has a prerenal component - torsemide is on hold. he is receiving low-dose IV fluids, following labs closely Status: Acute (2) Hyperkalemia: Problem details: - holding lisinopril - was borderline elevated this morning, so I chose to watch it, but more elevated this afternoon, so treat with insulin, glucose, calcium gluconate, albuterol - received Kayexalate x1 on 06/24 - continue close monitoring of electrolytes Status: Acute (3) Systolic heart failure secondary to coronary artery disease: Problem details: -on room air. No current symptoms of exacerbation of heart failure. TTE 06/24: Final Impressions: 1. Technically limited exam. 2. Not well visualized LV size, not well visualized wall thickness, normal global systolic function with an estimated EF of 55 - 60%. 3. Right ventricular cavity size is not well visualized, global systolic RV function is not well visualized. 4. The aortic valve is sclerotic, no stenosis and trivial regurgitation. 5. The mitral valve is tethered, mild mitral regurgitation. 6. Tricuspid valve is not well visualized. 7. The inferior vena cava is dilated, respiratory size variation less than 50%, consistent with elevated right atrial pressure. 8. Moderately increased estimated pulmonary pressures by tricuspid regurgitation velocity and right atrial pressure (39 mmHg plus RAP). 9. No pericardial effusion. Status: Acute (4) Mobitz (type) II atrioventricular block: Problem details: - noted on 06/24 EKG, improved as potassium was lowered - reviewed EKG with Dr. Nguyen, Circuit Manager at [facility] (06/24), notes that rhythm more consistent with Mobitz 1, and anticipated this will improve as potassium improves - hold carvedilol, treat hyperkalemia - Since this has resolved and it was Mobitz 1, no transferred needed. Status: Acute (5) Kidney disease, chronic, stage III (GFR 30-59 ml/min): Problem details: - with JOSELIN Status: Acute (6) IDDM (insulin dependent diabetes mellitus): Problem details: - A1C <7 on admission - SSI/Accuchecks - holding his glipizide-metformin secondary to JOSELIN Status: Acute (7) Essential hypertension: Problem details: - holding lisinopril and Coreg, BP stable Status: Acute (8) Anemia: Problem details: - previous outpatient hemoglobin 12.6 in 03/2021. Iron studies show iron deficiency. No obvious source of bleeding. Continue to trend. Stools are guaiac negative. Replace iron. Outpatient evaluation for iron deficiency anemia Status: Acute Plan - as above - Cr improving, continue IVF, BMPs, treat elevated K with albuterol, dextrose, insulin, calcium gluc. - renally dosed Lovenox - continue telemetry - continue to follow BMP closely - daughter in law Mayra updated by phone, questions answered Subjective Time Seen by Provider: 11:09 Date Seen: 06/26/22 Interval history: Franklin had no complaints. He denies SOB. He notes he is urinating a lot more today. He called his ucequqea-ak-gaj, Mayra, and I spoke with her over the phone while he listened in. We discussed his kidney function, elevated potassium, prognosis, renal diet, and disposition. Exam Narrative: Exam Narrative: General: No acute distress. Awake, alert, oriented x3. No pallor. No jaundice. Oropharynx: Clear. Mucous membranes moist. Cardiovascular: Regular rate and rhythm. No murmurs, gallops, or rubs. Respiratory: Clear to auscultation bilaterally. No wheezes or crackles. Abdomen: Bowel sounds present. Soft, nondistended, nontender. Extremities: No pedal edema. Const: Vital Signs, click to edit/add: Vital Signs - 24 hr 06/25/22 23:00 06/25/22 23:00 06/26/22 02:06 Temperature 98 F Pulse Rate Pulse Rate [Pulse Oximeter] 71 68 Respiratory Rate 20 18 Blood Pressure [Le ft Arm] 130/68 Pulse Oximetry 96 93 Oxygen Delivery Me thod Room Air Oxygen Flow Rate 1 06/26/22 07:30 06/26/22 07:30 06/26/22 12:02 Temperature 97.7 F Pulse Rate Pulse Rate [Pulse Oximeter] 68 Respiratory Rate 18 Blood Pressure [Le ft Arm] 142/72 H Pulse Oximetry 93 93 94 Oxygen Delivery Me thod Room Air Room Air Oxygen Flow Rate 06/26/22 11:00 06/26/22 15:35 06/26/22 15:35 Temperature 98.6 F 97.7 F Pulse Rate Pulse Rate [Pulse Oximeter] 61 78 Respiratory Rate 20 16 Blood Pressure [Le ft Arm] 133/74 134/69 Pulse Oximetry 96 96 96 Oxygen Delivery Me thod Nasal Cannula Oxygen Flow Rate 1 06/26/22 17:10 06/25/22 20:56 06/25/22 21:00 Temperature 98 F Pulse Rate 78 84 Pulse Rate [Pulse Oximeter] 83 Respiratory Rate 20 Blood Pressure [Le ft Arm] 145/92 H Pulse Oximetry 95 Oxygen Delivery Me thod Room Air Oxygen Flow Rate 1 06/25/22 22:26 Temperature 98.2 F Pulse Rate Pulse Rate [Pulse Oximeter] 71 Respiratory Rate 20 Blood Pressure [Le ft Arm] 146/84 H Pulse Oximetry 96 Oxygen Delivery Me thod Room Air Oxygen Flow Rate 1 Documenting provider has reviewed patient's vital signs: yes Labs Labs: Laboratory Results - last 24 hr 06/25/22 06/26/22 06/26/22 18:10 07:31 07:31 WBC 7.87 RBC 3.16 L Hgb 9.1 L Hct 28.3 L MCV 90 MCH 29 MCHC 32 RDW Coeff of Won 13.1 Plt Count 220 Neut % (Auto) 71.0 Lymph % (Auto) 15.6 L [place] % (Auto) 9.4 Eos % (Auto) 3.6 Baso % (Auto) 0.4 Neut # (Auto) 5.59 Lymph # (Auto) 1.20 [place] # (Auto) 0.70 Eos # (Auto) 0.28 Baso # (Auto) 0.03 Sodium 137 139 Potassium 5.0 5.2 H Chloride 106 110 Carbon Dioxide 23 23 BUN 73 H 60 H Creatinine 3.5 H 2.7 H Estimated Creat Clear 18.23 23.63 Estimated GFR 18 25 Glucose 236 H 171 H Calcium 9.2 8.6 Ionized Calcium Mario Phosphorus 3.9 Magnesium 1.4 L 06/26/22 06/26/22 07:31 12:36 WBC RBC Hgb Hct MCV MCH MCHC RDW Coeff of Won Plt Count Neut % (Auto) Lymph % (Auto) [place] % (Auto) Eos % (Auto) Baso % (Auto) Neut # (Auto) Lymph # (Auto) [place] # (Auto) Eos # (Auto) Baso # (Auto) Sodium 136 Potassium 5.5 H Chloride 107 Carbon Dioxide 22 BUN 56 H Creatinine 2.5 H Estimated Creat Clear 25.52 Estimated GFR 27 Glucose 282 H Calcium 9.0 Ionized Calcium Mario 1.18 Phosphorus Magnesium
[2022-06-26] MEDS: ALBUTEROL SULFATE 2.5 MG/3 ML VIAL.NEB NEB ×2 (18:20→23:58)
[2022-06-26] MEDS: DEXTROSE 50 % SYRINGE IVP ×2 (18:21→23:57)
[2022-06-26] MEDS: ATORVASTATIN CALCIUM 40 MG TABLET 80 MG PO (20:37)
[2022-06-26] MEDS: GABAPENTIN 300 MG CAPSULE PO (20:37)
--- NOTE | 2022-06-26 20:38 | PC.NURSE ---
shift note: pt up in room sba. pt denies sob or chest pain. vss stable. Iv patent to Lt FA. LS dim throughout. tele in place with 1 degree block.
[2022-06-26 21:56] LABS: Chloride* 108 mmol/L (96-114)
[2022-06-26 21:57] LABS: Potassium* 5.7 mmol/L (3.6-5.1); Sodium* 138 mmol/L (135-149)
[2022-06-26 21:59] LABS: Creatinine* 2.2 mg/dL (0.5-1.5); Estimated Glomerular Filt Rate 32 ml/min
[2022-06-26 22:00] LABS: Blood Urea Nitrogen* 53 mg/dL (7-30); Calcium* 9.1 mg/dL (8.4-10.6); Carbon Dioxide* 23 mmol/L (20-32); Glucose* 335 mg/dL (60-115)
--- NOTE | 2022-06-26 22:34 | PC.NURSE ---
Shift [id number]- Patient denies pain throughout shift. Appetite intact. He is on 1L O2 on NC while awake and switched to oxymask while asleep to keep saturations >90%.
[2022-06-26] MEDS: CALCIUM GLUC 1,000MG/50 ML 1,000 MG/50 ML BAG 100 MG IVPB (23:52)
[2022-06-27 03:00] VITALS: BP 112/68; PULSE 66; RESP 18; TEMP 36.5; O2SAT 93
[2022-06-27 04:40] LABS: Potassium* 5.2 mmol/L (3.6-5.1)
[2022-06-27] MEDS: ALBUTEROL SULFATE 2.5 MG/3 ML VIAL.NEB NEB ×6 (05:29→23:41)
[2022-06-27] MEDS: 0.9 % SODIUM CHLORIDE 1000 ml 1,000 ML 75 ML IV (05:35)
--- NOTE | 2022-06-27 05:43 | PC.NURSE ---
VSS on 1L of O2 via NC. Patient is alert and oriented x4, able to communicate needs to staff. Patient denies pain, SOB and headache this shift. Patient had potassium 5.7 this shift, high potassium protocol initiated. Lab recheck and potassium is at 5.2 now. Patient is stable, call light within reach.
[2022-06-27 07:00] VITALS: O2SAT 96
[2022-06-27] MEDS: ASPIRIN 81 MG TAB.CHEW PO (09:09)
[2022-06-27] MEDS: FERROUS SULFATE 325 MG TABLET PO (09:09)
[2022-06-27 09:22] VITALS: BP 147/94; PULSE 67; RESP 20; TEMP 36.6; O2SAT 92
[2022-06-27] MEDS: 0.9 % SODIUM CHLORIDE 500 ML 500 ML IV (13:11)
[2022-06-27] MEDS: FUROSEMIDE 10 MG/ML inj 40 MG IVP (13:11)
[2022-06-27 15:00] VITALS: BP 140/68; PULSE 72; RESP 20; TEMP 36.6; O2SAT 92
[2022-06-27 16:31] LABS: Chloride* 108 mmol/L (96-114); Potassium* 4.7 mmol/L (3.6-5.1); Sodium* 139 mmol/L (135-149)
[2022-06-27 16:34] LABS: Blood Urea Nitrogen* 40 mg/dL (7-30); Calcium* 8.7 mg/dL (8.4-10.6); Carbon Dioxide* 21 mmol/L (20-32); Creatinine* 1.8 mg/dL (0.5-1.5); Est. Creatinine Clearance* 35.44; Estimated Glomerular Filt Rate 40 ml/min; Glucose* 325 mg/dL (60-115)
--- NOTE | 2022-06-27 17:02 | P.IMPN_ITS ---
Progress Note: A&P Assessment and plan (1) JOSELIN (acute kidney injury): Problem details: - likely iatrogenic (Torsemide, Metformin, Lisinopril). Torsemide was recently increased, and patient has had weight loss, so likely also has a prerenal component - torsemide was held and he was getting IVF. - renal function is nearing baseline. Stop IVF. Status: Acute (2) Hyperkalemia: Problem details: - holding lisinopril - this continues to be elevated despite renal function improving. I spoke with Dr. Rowland from Nephrology at [place] today. We discussed the possible use of fludrocortisone, p.r.n. Kayexalate, patiromer, or socium zirconium. At this point he recommended trying a bolus of IV fluid given with a dose of IV Lasix to flush out potassium in the urine. If this was successful, then he recommended outpatient follow-up with Nephrology and the patient may need to start either patiromer 8.4 g daily or sodium zirconium 10 g daily and then be seen by a human resources operations coordinator within the next week to adjust this. The other possibility is that if he is going to be restarting torsemide at some point, this may be enough to keep his potassium down. I will do the IV fluid bolus with 40 mg IV Lasix today and monitor labs. When potassium has stabilized, we can determine further plan of care. He will likely need torsemide restarted at some point as well. Status: Acute (3) Systolic heart failure secondary to coronary artery disease: Problem details: -on room air. No current symptoms of exacerbation of heart failure. TTE 06/24: Final Impressions: 1. Technically limited exam. 2. Not well visualized LV size, not well visualized wall thickness, normal global systolic function with an estimated EF of 55 - 60%. 3. Right ventricular cavity size is not well visualized, global systolic RV function is not well visualized. 4. The aortic valve is sclerotic, no stenosis and trivial regurgitation. 5. The mitral valve is tethered, mild mitral regurgitation. 6. Tricuspid valve is not well visualized. 7. The inferior vena cava is dilated, respiratory size variation less than 50%, consistent with elevated right atrial pressure. 8. Moderately increased estimated pulmonary pressures by tricuspid regurgitation velocity and right atrial pressure (39 mmHg plus RAP). 9. No pericardial effusion. Status: Acute (4) Mobitz (type) II atrioventricular block: Problem details: - noted on 06/24 EKG, improved as potassium was lowered - reviewed EKG with Dr. Nguyen, History Department Chair at [facility] (06/24), notes that rhythm more consistent with Mobitz 1, and anticipated this will improve as potassium improves - hold carvedilol, treat hyperkalemia - Since this has resolved and it was Mobitz 1, no transferred needed. Status: Acute (5) Kidney disease, chronic, stage III (GFR 30-59 ml/min): Problem details: - with JOSELIN Status: Acute (6) IDDM (insulin dependent diabetes mellitus): Problem details: - A1C <7 on admission - SSI/Accuchecks - holding his glipizide-metformin secondary to JOSEILN Status: Acute (7) Essential hypertension: Problem details: - holding lisinopril and Coreg, BP stable Status: Acute (8) Anemia: Problem details: - previous outpatient hemoglobin 12.6 in 03/2021. Iron studies show iron defi ciency. No obvious source of bleeding. Continue to trend. Stools are guaiac negative. Replace iron. Outpatient evaluation for iron deficiency anemia Status: Acute Time Spent With Patient Total time spent: Today I spent 45 minutes rounding on the patient. Greater than 50% included discussing with Nephrology, patient and his family, care with the team, reviewing data, updating and managing the care plan. Subjective Time Seen by Provider: 08:52 Date Seen: 06/27/22 Interval history: Franklin is feeling well and has no complaints. He continued to have elevated potassium overnight despite treatments. His sister and her boyfriend were here this afternoon, and were present for my second conversation with Franklin. We discussed my conversation with the human resources operations coordinator, renal diet and plan of care. Exam Narrative: Exam Narrative: General: No acute distress. Awake, alert, oriented x3. No pallor. No jaundice. Oropharynx: Clear. Mucous membranes moist. Cardiovascular: Regular rate and rhythm. No murmurs, gallops, or rubs. Respiratory: Clear to auscultation bilaterally. No wheezes or crackles. Abdomen: Bowel sounds present. Soft, nondistended, nontender. Extremities: No pedal edema. Const: Vital Signs, click to edit/add: Vital Signs - 24 hr 06/26/22 17:10 06/26/22 19:30 06/26/22 23:00 Temperature 98.1 F Pulse Rate 78 Pulse Rate [Pulse Oximeter] 92 Respiratory Rate 18 Blood Pressure [Le ft Arm] 143/82 H Pulse Oximetry 96 93 Oxygen Delivery Me thod Nasal Cannula Oxygen Flow Rate 1 06/26/22 23:00 06/26/22 23:00 06/27/22 03:00 Temperature 98.4 F 97.7 F Pulse Rate Pulse Rate [Pulse Oximeter] 92 76 66 Respiratory Rate 18 18 18 Blood Pressure [Le ft Arm] 126/67 112/68 Pulse Oximetry 93 93 Oxygen Delivery Me thod Room Air Room Air Oxygen Flow Rate 06/26/22 23:00 06/27/22 09:22 06/27/22 07:00 Temperature 97.8 F Pulse Rate 63 Pulse Rate [Pulse Oximeter] 67 Respiratory Rate 20 Blood Pressure [Le ft Arm] 147/94 H Pulse Oximetry 92 96 Oxygen Delivery Me thod Room Air Oxygen Flow Rate Documenting provider has reviewed patient's vital signs: yes Labs Labs: Laboratory Results - last 24 hr 06/26/22 06/27/22 06/27/22 21:37 02:05 16:04 Sodium 138 139 Potassium 5.7 H 5.2 H 4.7 Chloride 108 108 Carbon Dioxide 23 21 BUN 53 H 40 H Creatinine 2.2 H 1.8 H Estimated Creat Clear 29.00 35.44 Estimated GFR 32 40 Glucose 335 H 325 H Calcium 9.1 8.7
[2022-06-27 19:00] VITALS: BP 142/76; PULSE 80; RESP 18; TEMP 37.1; O2SAT 92
--- NOTE | 2022-06-27 20:07 | PC.NURSE ---
shift note: pt up with sba when IV in place. Pt has dim l/s throughout. pt on cont sats. Pt states he has Rt neck and upper shoulder pain when laying in bed. pt using aqua K pad with relief. IV replaced to rt wrist. tele in place
[2022-06-27] MEDS: ATORVASTATIN CALCIUM 40 MG TABLET 80 MG PO (20:51)
[2022-06-27] MEDS: GABAPENTIN 300 MG CAPSULE PO (20:51)
[2022-06-27] MEDS: SODIUM CHLORIDE 0.9 % (FLUSH) 10 ML SYRINGE 5 ML IVF (20:51)
[2022-06-27 23:00] VITALS: BP 126/80; PULSE 80; RESP 18; TEMP 36.9
[2022-06-28 03:00] VITALS: BP 137/74; PULSE 77; RESP 18; TEMP 36.6; O2SAT 98
[2022-06-28] MEDS: ALBUTEROL SULFATE 2.5 MG/3 ML VIAL.NEB NEB ×3 (03:42→13:01)
[2022-06-28 06:05] VITALS: PULSE 71
[2022-06-28 07:00] VITALS: PULSE 78; RESP 16; O2SAT 91
--- NOTE | 2022-06-28 07:01 | PC.NURSE ---
VSS on 2L of O2 via NC. Patient is alert and oriented x4, able to communicate needs to staff. Pt denies pain, SOD and headache. Continent of bowel and bladder, uses urinal at bedside. Ind with transfers. Pt is stable, call light with in reach.
[2022-06-28 07:10] LABS: Chloride* 110 mmol/L (96-114); Potassium* 4.5 mmol/L (3.6-5.1); Sodium* 140 mmol/L (135-149)
[2022-06-28 07:13] LABS: Blood Urea Nitrogen* 32 mg/dL (7-30); Calcium* 8.5 mg/dL (8.4-10.6); Carbon Dioxide* 23 mmol/L (20-32); Creatinine* 1.5 mg/dL (0.5-1.5); Est. Creatinine Clearance* 42.53; Estimated Glomerular Filt Rate 50 ml/min; Glucose* 195 mg/dL (60-115); Magnesium* 1.3 mg/dL (1.5-2.6)
[2022-06-28 07:19] VITALS: PULSE 69
[2022-06-28 08:16] VITALS: BP 151/82; PULSE 78; RESP 16; TEMP 37.1; O2SAT 91
[2022-06-28] MEDS: MAGNESIUM IV 2 GM/50 ML PIGGYBACK IVPB (08:24)
[2022-06-28] MEDS: ASPIRIN 81 MG TAB.CHEW PO ×2 (08:24→08:25)
[2022-06-28] MEDS: SODIUM CHLORIDE 0.9 % (FLUSH) 10 ML SYRINGE 5 ML IVF (08:25)
[2022-06-28] MEDS: FERROUS SULFATE 325 MG TABLET PO (08:25)
--- NOTE | 2022-06-28 10:51 | NUTR.NU ---
RDN with MD consult related to Renal Diet. RDN visited with patient and patient's ujsrdqne-wz-plu (designated caregiver, Mayra) over the phone. Patient lives with Mayra and family, and prepares most meals for patient. Nutrition education provided on a low sodium diet related to chronic kidney diease.? Verbal and written information provided. Recommend limiting sodium to 2,000 mg per day.?Also recommended to focus on protein, specially plant-based soures, fruits and vegetables, and low-fat protein and dairy sources. Discussed foods recommended and to avoid.?Handouts provided from [facility] the support discussion. Patient and Mayra verbalized understanding. RDN mentioned that if patient plans on visiting with a marine radio installer and servicer after discharge, marine radio installer and servicer may have more specific diet recommendations for patient. RDN's contact information was provided and patient/family was encouraged to call with questions.?
--- NOTE | 2022-06-28 13:28 | P.DS_ITS ---
DS: Providers Provider Time Seen by Provider: 11:00 Date Seen: 06/28/22 Date of admission: 06/24/22 12:44 Primary care physician: Dayanara Darling MD Admitting Clinician: Shireen Ramos MD Consults: 06/25/22 07:58 Consult to Nutrition [CONS] Routine Comment: Reason for consult:: Nutritional Consult Comment: renal diet, CHF diet 06/28/22 09:52 Consult to Nutrition [CONS] Routine Comment: Reason for consult:: Miscellaneous Comment: renal diet Attending Physician on discharge: Maday Rhodes MD Date of Discharge: 06/28/22 DS: Diagnosis Discharge Diagnosis (1) JOSELIN (acute kidney injury): Status: Acute Problem details: - likely iatrogenic (Torsemide, Metformin, Lisinopril). Torsemide was recently increased, and patient has had weight loss, so likely also has a prerenal component - torsemide was held and he was getting IVF. - renal function near baseline. Hyperkalemia has resolved. (2) Hyperkalemia: Status: Acute Problem details: - continue to hold lisinopril until seen by Nephrology - this continues to be elevated despite renal function improving. I spoke with Dr. Rowland from Nephrology at [facility] today. We discussed the possible use of fludrocortisone, p.r.n. Kayexalate, patiromer, or socium zirconium. At this point he recommended trying a bolus of IV fluid given with a dose of IV Lasix to flush out potassium in the urine. If this was successful, then he recommended outpatient follow-up with Nephrology and the patient may need to start either patiromer 8.4 g daily or sodium zirconium 10 g daily and then be seen by a gas roller operator within the next week to adjust this. The other possibility is that if he is going to be restarting torsemide at some point, this may be enough to keep his potassium down. I will do the IV fluid bolus with 40 mg IV Lasix today and monitor labs. When potassium has stabilized, we can determine further plan of care. He will likely need torsemide restarted at some point as well. (3) Mobitz (type) II atrioventricular block: Status: Acute Problem details: - noted on 06/24 EKG, improved as potassium was lowered - reviewed EKG with Dr. Nguyen, Liquid Yeast Supervisor at [facility] (06/24), notes that rhythm more consistent with Mobitz 1, and anticipated this will improve as potassium improves - hold carvedilol, treat hyperkalemia - Since this has resolved and it was Mobitz 1, no transferred needed. (4) Systolic heart failure secondary to coronary artery disease: Status: Chronic Problem details: -on room air. No current symptoms of exacerbation of heart failure. TTE 06/24: Final Impressions: 1. Technically limited exam. 2. Not well visualized LV size, not well visualized wall thickness, normal global systolic function with an estimated EF of 55 - 60%. 3. Right ventricular cavity size is not well visualized, global systolic RV function is not well visualized. 4. The aortic valve is sclerotic, no stenosis and trivial regurgitation. 5. The mitral valve is tethered, mild mitral regurgitation. 6. Tricuspid valve is not well visualized. 7. The inferior vena cava is dilated, respiratory size variation less than 50%, consistent with elevated right atrial pressure. 8. Moderately increased estimated pulmonary pressures by tricuspid regurgitation velocity and right atrial pressure (39 mmHg plus RAP). 9. No pericardial effusion. (5) Essential hypertension: Status: Chronic Problem details: - holding lisinopril and Coreg, BP stable (6) Kidney disease, chronic, stage III (GFR 30-59 ml/min): Status: Acute Problem details: - with JOSELIN - follow-up in Nephrology outpatient (7) IDDM (insulin dependent diabetes mellitus): Status: Acute Problem details: - A1C <7 on admission - SSI/Accuchecks - holding metformin secondary to JOSELIN/CKD; I have restarted takes glipizide for home going and started him on long-acting insulin (8) Anemia: Status: Acute Problem details: - previous outpatient hemoglobin 12.6 in 03/2021. Iron studies show iron deficiency. No obvious source of bleeding. Stools are guaiac negative. Replace iron. Outpatient evaluation for iron deficiency anemia. Chronic renal failure is likely also contributing to this. DS: Summary Hospital Course Hospital Course: This is a 66-year-old male with chronic kidney disease stage who has had several recent admissions for CHF exacerbation. He was discharged home on lisinopril and torsemide at the end of last month and did not follow-up in the clinic as scheduled on discharge. When he did follow-up and had labs drawn, his creatinine was greater than 5. He felt fine. He came to the emergency department and was admitted. Lisinopril and torsemide were held and he was started on IV fluids. Potassium was also elevated. Over the next few hospital days his creatinine continued to improve as would be expected with acute kidney injury however hyperkalemia was persistent despite several doses of Kayexalate. Nephrology was consulted and he was given a challenge of IV fluid bolus with a dose of IV Lasix with good results. Since then his creatinine has continued to improve and his potassium has remained stable and not elevated. He is discharged home today in stable condition. Note to primary care provider and gas roller operator: I have not restarted Gasper's torsemide and he got lots of IV fluids here for rehydration and acute kidney injury. He was euvolemic upon discharge and had no respiratory symptoms or distress. Given his history of CHF exacerbation, I think he will need to resume torsemide at some point, at his next visit with you. Additionally his lisinopril remains on hold for recent acute kidney injury. I am hoping that nephrology can weigh in on when to restart this as well. Please recheck his potassium and magnesium and his next visit with you potassium was 4.5 on the day of discharge. Magnesium was low at 1.3 and he had gotten 2 g IV magnesium sulfate prior to discharge. Also please note that due to the risk of worsening renal failure I have stopped his metformin and transitioned him to glipizide and long-acting insulin. Please review his blood sugars and make adjustments when you see him. Time Spent with Patient Time attestation: Total time spent providing and/or coordinating discharge services: Exam Narrative: Exam Narrative: General: No acute distress. Awake, alert, oriented x3. No pallor. No jaundice. Oropharynx: Clear. Mucous membranes moist. Cardiovascular: Regular rate and rhythm. No murmurs, gallops, or rubs. Respiratory: Clear to auscultation bilaterally. No wheezes or crackles. Abdomen: Bowel sounds present. Soft, nondistended, nontender. Const: Vital Signs, click to edit/add: Vital Signs - 24 hr 06/27/22 15:00 06/27/22 15:00 06/27/22 15:00 Temperature 97.8 F Pulse Rate 72 Pulse Rate [Pulse Oximeter] 72 Respiratory Rate 20 Blood Pressure [Le ft Arm] 140/68 H Pulse Oximetry 92 92 Oxygen Delivery Me thod Room Air Oxygen Flow Rate 06/27/22 15:00 06/27/22 19:00 06/27/22 23:00 Temperature 98.8 F Pulse Rate Pulse Rate [Pulse Oximeter] 72 80 80 Respiratory Rate 20 18 18 Blood Pressure [Le ft Arm] 142/76 H Pulse Oximetry 92 Oxygen Delivery Me thod Room Air Oxygen Flow Rate 06/27/22 23:00 06/28/22 03:00 06/28/22 06:05 Temperature 98.5 F 98 F Pulse Rate 71 Pulse Rate [Pulse Oximeter] 77 Respiratory Rate 18 18 Blood Pressure [Le ft Arm] 126/80 137/74 Pulse Oximetry 98 Oxygen Delivery Me thod Nasal Cannula Oxygen Flow Rate 1 06/28/22 08:16 06/28/22 07:00 06/28/22 07:19 Temperature 98.7 F Pulse Rate 69 Pulse Rate [Pulse Oximeter] 78 Respiratory Rate 16 Blood Pressure [Le ft Arm] 151/82 H Pulse Oximetry 91 91 Oxygen Delivery Me thod Room Air Oxygen Flow Rate 06/28/22 07:00 Temperature Pulse Rate Pulse Rate [Pulse Oximeter] 78 Respiratory Rate 16 Blood Pressure [Le ft Arm] Pulse Oximetry Oxygen Delivery Me thod Oxygen Flow Rate Documenting provider has reviewed patient's vital signs: yes DS: Data Data Completed and Pending Completed studies during hospitalization: 06/23/2022 9:57 p.m. EKG: Sinus rhythm with first-degree AV block with premature atrial complexes. Heart rate 64 beats per minute. Possible anterior infarct, age undetermined. 06/24/2022 echocardiogram: Technically limited exam. Not well visualized LV size, not well visualized wall thickness, normal global systolic function with an estimated EF of 55-60%. Right ventricular cavity size is not well visualized, global systolic RV function is not well visualized. The aortic valve is sclerotic, no stenosis and trivial regurgitation. The mitral valve is tethered, mild mitral regurgitation. Tricuspid valve is not well visualized. The inferior vena cava is dilated, respiratory size variation less than 50%, consistent with elevated right atrial pressure. Moderately increased estimated pulmonary pressures by tricuspid regurgitation velocity and right atrial pressure (39 mmHg plus RAP). 06/24/2022 9:07 a.m. Sinus rhythm with second-degree AV block. This was read as a Mobitz type 2 by the computer, however human over-read as Mobitz type 1 and discussed with cardiology on 06/24/2022. Possible anterior infarct, age undetermined. 06/24/2022 10:20 a.m. EKG: Sinus rhythm with second-degree AV block (Mobitz I), heart rate 57 beats per minute. Nonspecific ST and T-wave abnormality. Labs on day of discharge: Labs from last 24 hours 06/28/22 06/27/22 06:10 16:04 Sodium 140 139 Potassium 4.5 4.7 Chloride 110 108 Carbon Dioxide 23 21 BUN 32 H 40 H Creatinine 1.5 1.8 H Estimated Creat Clear 42.53 35.44 Estimated GFR 50 40 Glucose 195 H 325 H Calcium 8.5 8.7 Magnesium 1.3 L Discharge Plan Discharge Disposition: Home, Self-Care Date of Admission: 06/24/22 12:44 Attending Provider on Discharge: Maday Rhodes Primary Care Provider: Dayanara Darling Condition: Stable Anticipated Discharge Date/Time: 06/28/22 13:41 Discharge Medications: New Levemir FlexTouch U-100 Insuln 100 unit/mL (3 mL) Insulin Pen 7 unit subcut Q24H Qty: 1 0RF glipizide 10 mg tablet extended release 24hr 10 mg PO DAILY Qty: 30 0RF Continued carvedilol 3.125 mg tablet 3.125 mg PO BID Label Comments: TAKE 1 TABLET BY MOUTH TWICE DAILY gabapentin 300 mg capsule 300 mg PO HS Label Comments: TAKE 1 CAPSULE BY MOUTH EVERY NIGHT AT BEDTIME tamsulosin 0.4 mg capsule 0.4 mg PO DAILY Label Comments: TAKE 1 CAPSULE BY MOUTH DAILY cholecalciferol (vitamin D3) 125 mcg (5,000 unit) capsule 5,000 unit PO DAILY Label Comments: TAKE 1 CAPSULE BY MOUTH DAILY atorvastatin 80 mg tablet 80 mg PO HS Label Comments: TAKE 1 TABLET BY MOUTH EVERY NIGHT AT BEDTIME aspirin [Aspirin Childrens] 81 mg tablet,chewable 81 mg PO DAILY sennosides-docusate sodium [Stool Softener-Laxative] 8.6-50 mg Tablet 2 tab-cap PO DAILY Qty: 100 0RF ferrous sulfate 325 mg (65 mg iron) Tablet 325 mg PO DAILYWM Qty: 100 0RF Discontinued glipizide-metformin 5-500 mg tablet 1 tab PO BID Label Comments: TAKE 2 TABLETS BY MOUTH TWICE DAILY torsemide 100 mg tablet 100 mg PO BID Qty: 60 0RF lisinopril 5 mg tablet 2.5 mg PO DAILY Qty: 30 0RF Label Comments: TAKE 1 TABLET BY MOUTH DAILY Discharge Orders: Discharge Order (Routine); Ordered 06/28/22 Ordered By: Maday Rhodes Patient Education: Acute Kidney Injury (DC), Chronic Kidney Disease Diet (DC), Heart Healthy Diet (DC), DASH Eating Plan (DC), Low-Sodium Diet (DC), Hypertension and Diabetes (DC), COVID-19 (Coronavirus Disease 2019) (GEN), COVID-19 and Chronic Health Conditions (DC), Face Coverings (Masks) and COVID-19 (DC) Additional Instructions: BMP and Magnesium level at PCP visit. Weigh yourself daily. Call your provider if you are becoming SOB or if you have gained 2lbs overnight or 5lbs in a week. Record blood sugars and bring this log to your appointment. Activity Level: No Restrictions Discharge Diet: Renal and 1500 ml Fluid Restriction Follow Up Appointments: Darrell Treviño JR, DO [Staff Physician] - 07/27/22 10:30 am ([facility] will reach out to push your appointment to a sooner date. ) Dayanara Darling MD [Primary Care Provider] - 07/01/22 10:30 am (BMP and Magnesium level) Forms: [employer] Info Instructions
--- NOTE | 2022-06-28 14:53 | PC.NURSE ---
Discharge-- Very pleasant and cooperative, alert and oriented, [place] patient was discharged to home via wheelchair with son. VSS and pt is afebrile. SPO2 maintained >90% on RA. He c/o some mild pain in neck and shoulders this morning that he reported was manageable with aqua K pad only. A few fine crackles were noted in bilateral bases of lungs, otherwise CTA. Telemetry showed NSR with 1st degree AV block. He denied nausea and tolerated a regular diet without difficulty. Blood sugars 210 and 430 today and pt was given insulin per sliding scale. MD was notified regarding BS of 430. He was up independently in his room today and tolerated it well. Discharge education was provided including diagnosis info, symptoms to report, medications and follow up plan. No further questions asked. SL was removed with tip intact.
== END 2022-06-28 14:27 | disposition home or self-care (01) | DRG 683 ==
LOC: ED 21:44 → MEDSURG 22:57
PROVIDERS: Family Medicine; Admitting Provider Family Medicine; Emergency Provider Family Medicine; PCP Family Medicine; Visit Provider Family Medicine
DX: N17.9 Acute kidney failure, unspecified (principal); I13.0 Hypertensive heart and chronic kidney disease with heart failure and stage 1 through stage 4 chronic kidney disease, or unspecified chronic kidney disease; I50.20 Unspecified systolic (congestive) heart failure; T50.1X5A Adverse effect of loop [high-ceiling] diuretics, initial encounter; T46.4X5A Adverse effect of angiotensin-converting-enzyme inhibitors, initial encounter; E87.5 Hyperkalemia; I12.9 Hypertensive chronic kidney disease with stage 1 through stage 4 chronic kidney disease, or unspecified chronic kidney disease; N18.30 Chronic kidney disease, stage 3 unspecified; I25.9 Chronic ischemic heart disease, unspecified; E11.22 Type 2 diabetes mellitus with diabetic chronic kidney disease; I25.10 Atherosclerotic heart disease of native coronary artery without angina pectoris; E78.5 Hyperlipidemia, unspecified; I25.2 Old myocardial infarction; Z87.891 Personal history of nicotine dependence; D50.9 Iron deficiency anemia, unspecified; I44.1 Atrioventricular block, second degree; Z79.4 Long term (current) use of insulin; Z79.84 Long term (current) use of oral hypoglycemic drugs; Z86.16 Personal history of COVID-19
CPT/HCPCS: 36415; 80048; 81001; 82330; 82803; 82962; 83036; 83605; 83735; 83880; 84100; 84132; 84484; 85025; 87086; 87426; 87631; 93005; 93306; 94640; 94761; 99284; 99285; G0378; A9270; J0610; J1940; J3475; J7030; J7042; J7120

== ENCOUNTER 2022-07-22 07:05 | Outpatient (CLI) | payer MEDICARE, BC, SELFPAY ==
--- NOTE | 2022-07-22 08:59 | W.ANESCHARGE ---
Anesthesia Charges Start Date/Time Anesthesia Start Date: 07/22/22 Anesthesia Start Time: 07:55 Stop Date/Time Anesthesia Stop Date: 07/22/22 Anesthesia Stop Time: 08:50
--- NOTE | 2022-07-22 09:41 | W.ANESCHARGE ---
Anesthesia Charges Start Date/Time Anesthesia Start Date: 07/22/22 Anesthesia Start Time: 07:55 Stop Date/Time Anesthesia Stop Date: 07/22/22 Anesthesia Stop Time: 08:50
== END 2022-07-22 07:06 | disposition home or self-care (01) ==
PROVIDERS: PCP Family Medicine; Visit Provider Surgery
DX: Z12.11 Encounter for screening for malignant neoplasm of colon (principal); K63.5 Polyp of colon; K57.30 Diverticulosis of large intestine without perforation or abscess without bleeding; K64.8 Other hemorrhoids
CPT/HCPCS: 00811; 45385; 88305; J2704